=== PATIENT | female | born 1965 | race Caucasian/White ===

== ENCOUNTER 2017-08-02 18:48 | Inpatient (IN) | payer OTHER ==
[2017-08-02] MEDS ORDERED: Nitroglycerin 2% Ointment 1 INCH/1 GM Packet ONE (19:06)
[2017-08-02 19:21] LABS: #Basophils 0.2 thou/uL (0.0-0.2); #Eosinphils 0.1 thou/uL (0.0-0.7); #Monocytes 0.8 thou/uL (0.11-0.59); #Neutrophils 6.3 thou/uL (1.40-6.50); %Basophils 1.5 % (0.0-1.0); %Eosinophils 1.1 % (0.0-10.0); %Lymphocytes 40.3 % (21.0-51.0); %Monocytes 6.5 % (0.0-10.0); %Neutrophils 50.6 % (42.0-75.0); Mean Corpuscular HGB CONC 32.5 g/dL (32.0-36.0); Mean Corpuscular Hemoglobin 28.1 pg (27.0-31.0); Mean Corpuscular Volume 86.6 fl (81.0-99.0); Platelet Count 277 thou/uL (130-400); RBC Distribution Width 13.5 % (11.5-14.5); Red Blood Cell (RBC) Count 4.98 mill/uL (4.20-5.40); White Blood Cell (WBC) Count 12.4 thou/uL (4.8-10.8)
--- NOTE | 2017-08-02 19:31 | RAD ---
SINGLE VIEW OF THE CHEST 08/02/17 COMPARISON: 01/20/11. HISTORY: Chest pain and dyspnea on exertion. FINDINGS: Single view of the chest shows a normal sized cardiomediastinal silhouette. There is no evidence of c onsolidation, mass, or pleural effusion. The bones are unremarkable. IMPRESSION: No evidence of acute cardiopulmonary disease. POS: [facility]
[2017-08-02 19:37] LABS: ALT (SGPT) 34 U/L (8-55); AST (SGOT) 24 U/L (5-34); Albumin 4.3 g/dL (3.5-5.0); Alkaline Phosphatase 103 U/L (40-150); Anion Gap 13 mmol/L (10-20); BUN (Urea Nitrogen) 20 mg/dL (7.0-18.7); Bilirubin, Total 0.1 mg/dL (0.2-1.2); CK (CPK) 66 U/L (29-168); Calc. Creatinine Clearance 0 mL/min (70-130); Carbon Dioxide 22 mmol/L (22-29); Chloride 108 mmol/L (98-107); Estimated GFR-MDRD 71; Globulin 3.4 g/dL (2.4-3.5); Glucose 124 mg/dL (70-105); Lipase 100 U/L (8-78); Potassium 3.7 mmol/L (3.5-5.1); Protein, Total 7.7 g/dL (6.0-8.3); Sodium 139 mmol/L (136-145); Troponin I Less than 0.010 ng/mL (< 0.028)
[2017-08-02 22:22] LABS: Troponin I Less than 0.010 ng/mL (< 0.028)
[2017-08-02] MEDS ORDERED: Ondansetron HCl/PF 4 MG/2 ML Vial IVP PRN (23:44)
[2017-08-02] MEDS ORDERED: Ondansetron ODT 4 MG TAB SL PRN (23:44)
[2017-08-03 01:18] VITALS: BMI 33.9
[2017-08-03 01:43] LABS: Troponin I Less than 0.010 ng/mL (< 0.028)
[2017-08-03] MEDS ORDERED: Nitroglycerin 0.4 MG TAB (25 Tab Bottle) SL PRN (08:03)
[2017-08-03] MEDS ORDERED: FLU VACC QS2017-18 36 mo. & older 0.5 ML SYRINGE IM ONE (09:00)
[2017-08-03] MEDS ORDERED: Simvastatin 20 MG TAB PO SCH (09:00)
[2017-08-03] MEDS ORDERED: Non-Formulary Item 1 EACH (Fenofibrate [Fenofibrate] 1 TAB) PO SCH (09:00)
[2017-08-03] MEDS: Famotidine 20 MG TAB PO SCH ×2 (09:48→22:15)
[2017-08-03] MEDS: DULoxetine 30 MG CAP PO SCH ×2 (09:49→22:14)
[2017-08-03] MEDS: Fenofibrate Nanocrystallized 145 MG TAB PO SCH (09:49)
[2017-08-03] MEDS: Aspirin 325 MG TAB PO SCH (09:49)
--- NOTE | 2017-08-03 11:20 | ULT ---
ULTRASOUND ABDOMEN: HISTORY: Epigastric pain. Elevated lipase. FINDINGS: The liver demonstrate a homogeneous echotexture without focal mass or biliary ductal dilatation. The spleen measures 12 cm in length and is normal. No gallstones, gallbladder wall thickening, or peric holecystic fluid is seen. The common duct measures 4 mm in diameter. The left kidney and visualized portions of the pancreas are unremarkable. No free fluid is seen. There is a 2 cm hypoechoic focal area in the right mid kidney. IMPRESSION: 1. No evidence of cholelithiasis. 2. Probable 2 cm right renal mass. Further evaluation with CT scan of the abdomen and pelvis is rec ommended with and without intravenous contrast. CODE T POS: [facility]
--- NOTE | 2017-08-03 11:33 | HP ---
CHIEF COMPLAINT: Chest pain. HISTORY OF PRESENT ILLNESS: This is a 52-year-old female with known coronary disease with her last cardiac catheterization in 2014, which revealed a 70% stenosis in the left circumflex, 30-40%,right coronary, 20% in LAD with a patent stent who has admitted to persistent on and off chest pain, but yesterday developed increasing chest pain worse than her typical. She states that she has been in her usual state of health. She woke up to make breakfast and developed left-sided chest pain. The pain was more severe than typical. She stated 7-8/10. She did have some associated shortness of breath, nausea and diaphoresis. She states that the pain did radiate to her right shoulder and right jaw. It persisted throughout the morning. She told her and they brought her to the emergency room for evaluation. She states that the pain did improve when they put nitroglycerin on her chest wall. She has been pain free ever since, feeling close to her baseline now with still her baseline 2-3/10 out of pain, but much better than yesterday. PAST MEDICAL HISTORY: Coronary artery disease, hypertension, hyperlipidemia, anxiety, and depression. MEDICATIONS: Cymbalta 30 mg b.i.d., metoprolol 50 mg daily, simvastatin 20 mg daily, fenofibrate 160 mg daily, aspirin 325 mg daily. PAST SURGICAL HISTORY: Cardiac catheterization with stent 2012, cardiac catheterization 2014, appendectomy, hysterectomy with oophorectomy. SOCIAL HISTORY: No alcohol. No recent smoking history. FAMILY HISTORY: Positive for heart disease. REVIEW OF SYSTEMS: As per the history of present illness. She denies any recent fevers, chills or upper respiratory symptoms. HEENT: No headache, vision or hearing changes. CARDIAC: As per the history of present illness. No palpitations. PULMONARY: No cough, hemoptysis. GASTROINTESTINAL: Some nausea, but improved. No melena or hematochezia. GENITOURINARY: No dysuria or hematuria. NEUROLOGIC: No weakness, seizures, or syncope. PHYSICAL EXAMINATION: VITAL SIGNS: Temperature 97.9, pulse of 75, respirations 16, blood pressure 110 /70, pulse ox is 92% on room air. GENERAL: She is awake and alert, in no acute distress. Speech is clear. NECK: Supple, no JVD, adenopathy or bruits. HEART: Regular rate and rhythm without murmurs. LUNGS: Clear. ABDOMEN: Soft, slight epigastric tenderness. No rebound or guarding. EXTREMITIES: No clubbing, cyanosis or edema, 2+ peripheral pulses bilaterally. LABORATORY AND X-RAY FINDINGS: White blood cell count 12.4, with normal differential, hemoglobin and hematocrit 14 and 43.1, platelets of 277. Sodium 139, potassium 3.7, chloride 108, CO2 22, BUN and creatinine 20 and 0.85, serum glucose of 121, calcium of 10.0, AST and ALT are normal. Lipase was elevated at 100. Troponin I negative x3. BNP was 10.9. ASSESSMENT AND PLAN: 1. This is a 52-year-old female with known coronary artery disease, now with episode of chest pain with suspicious symptoms of nausea, diaphoresis. Agree with admission, rule out coronary syndrome. No sign of myocardial infarction with negative cardiac enzymes. Await Cardiology evaluation for further risk stratification. Consider long-acting nitrate to improve her symptoms. 2. Epigastric pain with elevated lipase. We will check ultrasound to rule out pancreatic source of her pain as well. 3. Hypertension. 4. Hyperlipidemia. We will continue her medications. DEANNED
[2017-08-03] MEDS ORDERED: ISOVUE-370 76%-LOCM 1 ML ONE (13:15)
[2017-08-03] MEDS ORDERED: ADENOSINE 60 MG/20 ML VIAL ONE (13:30)
--- NOTE | 2017-08-03 16:03 | NM ---
CARDIAC SPECT: CLINICAL HISTORY: 52-year-old female with chest pain, coronary artery disease, hypertension, and dyslipidemia. TECHNIQUE: A myocardial perfusion scan was performed using the single isotope one day protocol with technetium-9 9m sestamibi. 10 mCi were injected intravenously for the rest exam followed by 31 mCi for the stress exam. Pharmacologic stress with Lexiscan was monitored and interpreted by John Tapia NP. FINDINGS: Homogeneous tracer distribution is seen in the myocardial segments on stress and rest images without fixed or reversible defects. There is a focal area of increased tracer localization in the region of the right anterior mediastinu m. GATED SPECT LVEF: 71%. WALL MOTION EXAM: Normal. IMPRESSION: 1. Normal myocardial perfusion scan. 2. Findings suspicious for a right anterior mediastinal mass. Further evaluation with contrast enhan jeff CT scan of the chest is recommended. CODE T. POS: [facility]
--- NOTE | 2017-08-03 17:04 | CON ---
DATE OF CONSULTATION: 08/03/2017 CARDIOLOGY CONSULTATION PRIMARY ATTENDING: Fly Trujillo D.O. INDICATION FOR CONSULTATION: A 52-year-old female with known coronary artery disease and chest pain. HISTORY OF PRESENT ILLNESS: This very unfortunate 52-year-old female, who has a long history of alyssa nary artery disease. She first was seen by Dr. Azar in 2010, where she was seen in the emergency room and presented with an anterior MS acutely. She was taken to cardiac geotechnical laboratory technician and was found to have thrombus in the left anterior descending artery. She underwent angioplasty and stent placement at that time with a 2.5 x 23 mm stent to the left anterior descending artery. At that time, she had a left main stenosis of 10%. She had the RCA stenosis of 20% and the left circumflex was a small non dominant vessel with no significant stenosis. Ejection fraction was 40% to 45%. She then was seen, I believe in 2012, which we do not have records for, and at that time I believe she had cardiac rosa terization done at [facility], but no intervention was performed according to the patient. Then, again in 2014, she presented to [facility] to insurance changes and was found to have the in-stent restenosis of the left anterior descending artery about 70% and un derwent repeat angioplasty with a 3.5 x 15 mm balloon at that time and there was no residual stenosis , but there was no repeat stent placed. Apparently, a couple weeks later, she was seen again for fur ther intervention and she underwent angioplasty and stent placement to the left circumflex with a 2.2 5 x 12 mm drug-coated stent to the obtuse marginal branch. Since that time, she has been doing relat ively well, but said that she has started developing chest pain sometime back, did not have insurance and did not seek the care of a business technology teacher, but earlier this year she has now regained insurance an d has been trying to find a business technology teacher, but has been yet thus far has not seen Cardiology. She pre sented again at this time after having some chest discomfort. She said the chest pain started yester day morning, she became short of breath, nauseated and dizzy. She presented to the emergency room. Enzymes are negative. EKG was unremarkable. Her last stress test was previous to undergoing her las t stent placement. She also has some chest heaviness. Her enzymes still remain negative and EKG was unremarkable. At this time, she is pain free. She is comfortable and has no significant complaints . PAST MEDICAL HISTORY: Significant for the coronary artery disease, angioplasty and stent placement a s outlined above. She has also had a history of hypercholesterolemia. She has a history, I believe, gastroesophageal reflux disease. She has had a history of myocardial infarction in the past involvi ng the anterior wall of the left ventricle due to her occlusion of the left anterior descending arter y. FAMILY HISTORY: Her father also had coronary artery disease and I believe one brother had coronary a rtery disease. ALLERGIES: None. PRESENT MEDICATIONS: Include Lipitor 10 mg a day, aspirin 325 mg a day, Cymbalta, Pepcid, fenofibrat e, isosorbide mononitrate 60 mg a day, metoprolol 50 mg a day, nitroglycerin p.r.n. as needed, Zofran and also p.r.n. medications. REVIEW OF SYSTEMS: A 12 point review of systems unremarkable except what was noted in the history of present illness. PHYSICAL EXAMINATION: GENERAL: Reveals a well-developed, well-nourished female. VITAL SIGNS: Blood pressure is 108/64, heart rate is 63 and regular. She is afebrile, respiratory r ate is 18. HEENT: Reveals the head to be normocephalic and atraumatic. Carotid pulses are present. There were no bruits. There is no JVD. The thyroid is not enlarged. Oral mucosa was pink and moist. CHEST: Clear to auscultation. There were no rales, rhonchi or wheezes appreciated. CARDIOVASCULAR: Reveals a regular rate and rhythm with normal S1, S2. There is no S3, S4. There we re no significant murmurs, heaves, thrills, bruits or rubs noted. ABDOMEN: Soft and nontender with positive bowel sounds. No organomegaly or masses noted. Femoral p ulses are present. EXTREMITIES: Show no clubbing, cyanosis or edema. Pedal pulses are also present. NEUROLOGIC: The patient is fully intact. She has normal strength and tone. SKIN: Warm and dry. LABORATORY AND X-RAY FINDINGS: Shows negative cardiac enzymes. She did have a lipase elevated at 10 0. Her creatinine 0.85, potassium 3.7, sodium is 139, BUN is 20. Hemoglobin is 14. Blood sugar is 124. EKG shows normal sinus rhythm with no acute changes. IMPRESSION AND PLAN: 1. Coronary artery disease with chest pain. She was ruled out for myocardial infarction. She had n o EKG changes and no enzymes. At this time, we suggest that she undergo stress testing to rule out e vidence for underlying ischemia. If any ischemic changes noted and she should undergo cardiac cathet erization for evaluation of the coronary arteries; however, she does have in the past that appear to be a small left anterior descending artery but in 2014, was post-dilated the previous stent up to 3.5 according to the records. 2. Hypercholesterolemia. She will continue on her statin medications. 3. Hypertension. At this time is well controlled. We will continue to monitor very carefully as deep delacruz is actually somewhat hypotensive at this time and I believe the isosorbide is being held due to the hypotension. We will be more than happy to continue to follow the patient with you. Most likely fu rther care will be determined by Dr. Azar as he has seen her in the past.
--- NOTE | 2017-08-03 18:37 | CT ---
CT CHEST WITH CONTRAST: 08/03/17 HISTORY: Suspicious right anterior mediastinal mass. Comparison radiograph prior day. FINDINGS: There is an anterior mediastinal mass with a lobular border extending from what appears to be thymus. There is some internal necrosis or cystic structures within this mass. The mass measures 3.1 x 4.5 x 3.9 cm. No pericardial effusion. There is a calcified anterior paratracheal and AP window lymph node s. No suspicious pulmonary nodules. No pneumothorax. No effusion. The sternum and manubrium are intact. The upper abdomen is unremarkable. IMPRESSION: Lobular anterior mediastinal mass measuring 3.1 x 4.4 x 3.9 cm which appears to extend from the thymu s. 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 Lymphoma is also a possibility. Thoracic surgery cons ultation advised. POS: [facility]
[2017-08-03] MEDS ORDERED: Atorvastatin Calcium 10 MG TAB PO SCH (21:00)
[2017-08-04] MEDS: DULoxetine 30 MG CAP PO SCH (08:48)
[2017-08-04] MEDS: Aspirin 325 MG TAB PO SCH (08:48)
[2017-08-04] MEDS: Famotidine 20 MG TAB PO SCH (08:48)
[2017-08-04] MEDS: Fenofibrate Nanocrystallized 145 MG TAB PO SCH (08:48)
[2017-08-04 09:35] VITALS: BP 124/77; TEMP 98
--- NOTE | 2017-08-04 10:18 | CON ---
DATE OF CONSULTATION: 08/04/2017 HISTORY OF PRESENT ILLNESS: This is a 52-year-old female with a history of stenting on 2 occasions t o the LAD and then one occasion to a small circumflex system. In any event, she was admitted with so me chest and arm pain with negative cardiac enzymes. She underwent a stress study which was unremark able. However, there were some suspicious area on the stress study suggesting that she may have a me diastinal mass. 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 PAST MEDICAL HISTORY: Hypertension, dyslipidemia, anxiety, depression and previously noted coronary artery disease. PAST SURGICAL HISTORY: Includes appendectomy, hysterectomy, and oophorectomy in about 1999. She has had previous stenting in 2012 and 2014. SOCIAL HISTORY: She has not smoked since 2010. She is . She is not working. PHYSICAL EXAMINATION: GENERAL: She is an alert, cooperative lady in no distress. VITAL SIGNS: She has a recorded height of 5 feet 4, weight 197, blood pressure 124/77, heart rate 69 . NECK: Supple. No carotid bruits, no adenopathy. LUNGS: Clear to auscultation. CARDIAC: Regular rate and rhythm. No murmurs. ABDOMEN: Soft, nontender. EXTREMITIES: She has no peripheral edema. She has palpable pedal pulses bilaterally. LABORATORY: Her laboratory values are unremarkable with a normal creatinine and hemoglobin. HOME MEDICATIONS: Aspirin p.r.n., metoprolol 50 daily, Cymbalta 30 b.i.d., Zocor 20 daily, Fenofibra te 1 tablet daily. ALLERGIES: None known. PLAN: I have discussed the possibility of thymectomy via partial or complete sternotomy. She is agr eeable to this and we will arrange as an outpatient for next week.
--- NOTE | 2017-08-04 14:14 | DIS ---
DATE OF ADMISSION: 08/02/2017 DATE OF DISCHARGE: 08/04/2017 ADMITTING PHYSICIAN: Her PCP, Dr. Adams Trujillo. ADMITTING DIAGNOSIS: Chest pain. DISCHARGE DIAGNOSIS: Thymus mass. CONSULTATIONS: Cardiology and Cardiovascular Surgery. HOSPITAL COURSE: The patient is a 52-year-old female, who came in with known coronary braden ry disease, had previous stents placed, came in with chest pain, was watched overnight and her cardia c enzymes never increased. She had further imaging done, which showed potential for mediastinal mass . A CT scan was done of the area, which did show an enlarged retained thymus. At that point, Dr. Amor escalante from [facility] was consulted, evaluated, and agreed on the presence of the thymus, and in fact, it was the etiology of the discomfort. Discussed with the patient and he will plan on doing a thymec jose as an outpatient early next week. So, the discharge plan is to go home. She will continue her home meds. She is aware to stay away from NSAIDs and other known blood thinners like aspirin and she will follow up for the surgery early next week. After that she will follow up with Dr. Trujillo.
== END 2017-08-04 15:15 | disposition home or self-care (01) | DRG 816 ==
LOC: SCSER 18:48 → 2SW 19:50 → OBSVTOIN 19:50 → T4-A 08-03 22:07
PROVIDERS: ADMIT Family Medicine; ATTEND Family Medicine
DX: E32.9 Disease of thymus, unspecified (principal); E78.00 Pure hypercholesterolemia, unspecified; E78.5 Hyperlipidemia, unspecified; I25.10 Atherosclerotic heart disease of native coronary artery without angina pectoris; I10 Essential (primary) hypertension; F41.9 Anxiety disorder, unspecified; Z95.5 Presence of coronary angioplasty implant and graft; K21.9 Gastro-esophageal reflux disease without esophagitis; I25.2 Old myocardial infarction; Z79.02 Long term (current) use of antithrombotics/antiplatelets; Z79.82 Long term (current) use of aspirin
CPT/HCPCS: 36415; 71045; 71260; 76700; 78452; 80053; 82550; 82553; 83690; 83880; 84484; 85025; 93005; 93017; A9500; J0153

== ENCOUNTER 2017-08-08 10:19 | Inpatient (IN) | payer OTHER ==
[2017-08-08] MEDS ORDERED: CEFAZOLIN/Water 2 GM/20 ML SYRINGE ONE (10:54)
[2017-08-08] MEDS ORDERED: Glycopyrrolate 0.2 MG/ML 5 ML SYRINGE ONE (11:31)
[2017-08-08] MEDS ORDERED: Lidocaine 1% PF 5 ML VIAL ONE (11:31)
[2017-08-08] MEDS ORDERED: Propofol 200 MG/20 ML VIAL ONE (11:31)
[2017-08-08] MEDS ORDERED: PHENYLEPHRINE-NS 100 MCG/ML 10 ML SYRINGE ONE (11:31)
[2017-08-08] MEDS ORDERED: Ketorolac Tromethamine 30 MG/ML VIAL ONE ×2 (11:31→14:11)
[2017-08-08] MEDS ORDERED: Ondansetron HCl/PF 4 MG/2 ML Vial ONE (11:31)
[2017-08-08] MEDS ORDERED: Dexamethasone 20 MG/5 ML VIAL ONE (11:31)
[2017-08-08] MEDS ORDERED: Fentanyl 250 MCG/5 ML VIAL ONE (11:44)
[2017-08-08] MEDS ORDERED: Promethazine HCl 25 MG/ML VIAL IM PRN ×2 (13:55→14:16)
[2017-08-08] MEDS ORDERED: Ondansetron HCl/PF 4 MG/2 ML Vial IVP PRN ×2 (13:55→14:16)
[2017-08-08] MEDS ORDERED: DOPamine 400 MG/D5W 250 ML 250 ML IVPB PRN (13:55)
[2017-08-08] MEDS ORDERED: Norepinephrine 8 MG/0.9% NS 250 ML IVPB PRN (13:55)
[2017-08-08] MEDS ORDERED: hydrALAZINE 20 MG/ML VIAL SLOW IVP PRN (13:55)
[2017-08-08] MEDS ORDERED: HYDROcodone/Acetaminophen 5/325 mg Tablet PO PRN (13:55)
[2017-08-08] MEDS ORDERED: HYDROmorphone 0.5 MG/0.5 ML SYRINGE ONE (14:11)
[2017-08-08] MEDS ORDERED: Promethazine HCl 25 MG/ML VIAL SLOW IVP PRN (14:16)
[2017-08-08] MEDS ORDERED: HYDROmorphone 2 MG/ML VIAL SLOW IVP PRN (14:16)
--- NOTE | 2017-08-08 14:41 | OP ---
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 PROCEDURE: Thymectomy through upper partial sternal split. ANESTHESIA: General. ESTIMATED BLOOD LOSS: Less than 100 mL. FINDINGS: The patient had a multilobulated left lobe of the thymus. The right lobe consisted of abo ut 3 cm diameter tumor that was well encapsulated, although rather densely adherent to the right pleu ra. PROCEDURE IN DETAIL: After adequate anesthesia had been obtained, the patient was prepped and draped . Incision was made from the sternal notch down to the third rib in the midline of the sternum. Adam rnal saw was then used to divide the sternum down just below the third rib and then carried to the [facility] through the sternum into the interspace. Sternal retractor was then placed. The thymus was mobi lized beginning in the right lateral area and the right pleura entered rather immediately. Following this, dissection was carried out and the tumor was noted to be fairly densely adherent to the pleura and for this reason, a portion of the pleura was included with the specimen. Right phrenic nerve wa s visualized and incision in the pleura was kept at least 1 cm away from this. After mobilizing the tumor and pleura on the right side, attention was turned to the portions of thymus gland extending francis periorly on the right and left, and these were mobilized above the innominate vein. The innominate v ein was fully skeletonized to remove the thymus in this region. Following this, attention was turned to the left lobe of the thymus also entering the left pleura, visualizing the vagus nerve and once a gain staying about a centimeter from that structure freeing up the thymic gland. After removing the specimen, there were no bleeding issues after thorough inspection on 2 occasions. Two #19 drains wer e placed through subxiphoid process incisions and extended in each pleural space. Following this, th e sternum was reapproximated with four #7 interrupted wire using vancomycin paste on the sternal edge s. Subcutaneous tissue was closed in two layers and the skin was closed. The patient is to be taken to the recovery room in guarded condition.
[2017-08-08 15:55] VITALS: BMI 34.9
--- NOTE | 2017-08-08 16:07 | RAD ---
PORTABLE CHEST: Date: 08/08/17 HISTORY: Post thoracotomy. FINDINGS: Postop sternotomy changes are noted. There is patchy atelectasis and/or infiltrate in both lung bases , slightly more prominent on the right. Upper lung zones are clear. Heart size is mildly enlarged wit h mild vascular engorgement. I cannot exclude small effusions. IMPRESSION: Patchy infiltrate and/or atelectasis in the right lung base. Evidence of tiny effusions and probable mild atelectasis in the left lung base. POS: [facility]
[2017-08-08] MEDS: Fentanyl 100 MCG/2 ML VIAL SLOW IVP PRN ×2 (16:34→20:02)
[2017-08-08] MEDS ORDERED: Ketorolac Tromethamine 15 MG/ML VIAL IVP SCH (18:00)
[2017-08-08] MEDS ORDERED: Ketorolac Tromethamine 30 MG/ML VIAL IVP SCH (18:15)
[2017-08-08] MEDS: Enoxaparin Sodium 30 MG/0.3 ML SYRINGE SC SCH (20:08)
[2017-08-08] MEDS: DULoxetine 30 MG CAP PO SCH (20:08)
[2017-08-08] MEDS: CEFAZOLIN/Water 2 GM/20 ML SYRINGE SLOW IVP SCH (20:10)
[2017-08-08] MEDS: Sodium Chloride 0.9% 1,000 ML IV SCH (20:10)
[2017-08-08] MEDS: Ketorolac Tromethamine 30 MG/ML VIAL IVP SCH (22:56)
[2017-08-09] MEDS ORDERED: Morphine 4 MG/ML VIAL SLOW IVP PRN (01:05)
[2017-08-09] MEDS: Fentanyl 100 MCG/2 ML VIAL SLOW IVP PRN ×3 (02:04→21:11)
[2017-08-09] MEDS: CEFAZOLIN/Water 2 GM/20 ML SYRINGE SLOW IVP SCH ×2 (03:30→13:02)
[2017-08-09] MEDS: Sodium Chloride 0.9% 1,000 ML IV SCH (03:32)
[2017-08-09] MEDS: HYDROcodone/Acetaminophen 5/325 mg Tablet PO PRN ×5 (04:44→21:57)
[2017-08-09 05:33] LABS: #Lymphocytes 3.1 thou/uL (1.20-3.40); #Monocytes 1.1 thou/uL (0.11-0.59); #Neutrophils 9.6 thou/uL (1.40-6.50); %Basophils 0.2 % (0.0-1.0); %Eosinophils 0.2 % (0.0-10.0); %Lymphocytes 22.2 % (21.0-51.0); %Monocytes 7.8 % (0.0-10.0); %Neutrophils 69.6 % (42.0-75.0); Hemoglobin 12.8 g/dL (12.0-16.0); Mean Corpuscular HGB CONC 32.8 g/dL (32.0-36.0); Mean Corpuscular Volume 91.5 fl (81.0-99.0); Mean Platelet Volume 7.6 fL (7.4-10.4); Platelet Count 254 thou/uL (130-400); RBC Distribution Width 13.6 % (11.5-14.5); Red Blood Cell (RBC) Count 4.25 mill/uL (4.20-5.40); White Blood Cell (WBC) Count 13.8 thou/uL (4.8-10.8)
[2017-08-09 05:40] LABS: Anion Gap 12 mmol/L (10-20); BUN (Urea Nitrogen) 11 mg/dL (7.0-18.7); Calc. Creatinine Clearance 124 mL/min (70-130); Calcium 9.1 mg/dL (7.8-10.44); Carbon Dioxide 24 mmol/L (22-29); Chloride 106 mmol/L (98-107); Estimated GFR-MDRD 77; Glucose 97 mg/dL (70-105); Potassium 3.9 mmol/L (3.5-5.1); Sodium 138 mmol/L (136-145)
[2017-08-09] MEDS: Ketorolac Tromethamine 30 MG/ML VIAL IVP SCH ×4 (05:56→23:56)
[2017-08-09] MEDS: Aspirin 325 MG TAB PO SCH (08:02)
[2017-08-09] MEDS: DULoxetine 30 MG CAP PO SCH ×2 (08:02→21:11)
[2017-08-09] MEDS: Atorvastatin Calcium 10 MG TAB PO SCH (08:03)
--- NOTE | 2017-08-09 08:28 | RAD ---
CHEST 1 VIEW: HISTORY: Surgery. Followup. COMPARISON: 08/08/17. FINDINGS: Cardiac silhouette is magnified by projection. Pulmonary vasculature remains upper limits of normal and accentuated by shallow inspiration. Patchy bibasilar atelectasis is unchanged in appearance from the previous exam. Mediastinum is midline with postoperative changes. Radiopaque tubing over the r ight hemithorax is unchanged in position. monitor worker leads overlie the chest. IMPRESSION: Stable postoperative appearance of the chest. POS: [facility]
[2017-08-09] MEDS: Enoxaparin Sodium 30 MG/0.3 ML SYRINGE SC SCH (21:10)
[2017-08-10] MEDS: Ketorolac Tromethamine 30 MG/ML VIAL IVP SCH (06:33)
[2017-08-10] MEDS: HYDROcodone/Acetaminophen 5/325 mg Tablet PO PRN (06:34)
[2017-08-10 08:32] VITALS: BP 138/84; TEMP 98.4
[2017-08-10] MEDS: Atorvastatin Calcium 10 MG TAB PO SCH (09:12)
[2017-08-10] MEDS: Aspirin 325 MG TAB PO SCH (09:12)
[2017-08-10] MEDS: DULoxetine 30 MG CAP PO SCH (09:12)
--- NOTE | 2017-08-10 11:00 | DIS ---
DATE OF ADMISSION: 08/08/2017 DATE OF DISCHARGE: 08/10/2017 HOSPITAL SUMMARY: The patient was admitted on 08/08/2017 and underwent a thymectomy for thymoma. Sh e had no obvious invasion, although it was fairly densely adherent to the right pleura and for this r shannan, the right pleura was taken along with the tumor. Phrenic nerves were both preserved and pleur al spaces were both opened. Pathology is pending at the time of this dictation. She will be dischar [facility] on her admitting medicines plus Tylenol #3 for pain. Discharge and follow up instructions h ave been given.
== END 2017-08-10 09:26 | disposition home or self-care (01) | DRG 164 ==
LOC: SURG A 10:19 → CCU 15:35 → SURG A 08-09 09:39
PROVIDERS: ADMIT Thoracic Surgery (Cardiothoracic Vascular Surgery); ATTEND Thoracic Surgery (Cardiothoracic Vascular Surgery)
PROC: 07TM0ZZ Resection of Thymus, Open Approach (ICD-10-PCS; principal; 2017-08-08)
PROC: 0BBN0ZZ Excision of Right Pleura, Open Approach (ICD-10-PCS; 2017-08-08)
DX: C38.8 Malignant neoplasm of overlapping sites of heart, mediastinum and pleura (principal); C78.2 Secondary malignant neoplasm of pleura; C77.1 Secondary and unspecified malignant neoplasm of intrathoracic lymph nodes; E78.5 Hyperlipidemia, unspecified; F41.9 Anxiety disorder, unspecified; I10 Essential (primary) hypertension; Z95.5 Presence of coronary angioplasty implant and graft; I25.10 Atherosclerotic heart disease of native coronary artery without angina pectoris; F32.9 Major depressive disorder, single episode, unspecified; Z87.891 Personal history of nicotine dependence; Z90.710 Acquired absence of both cervix and uterus; Z90.49 Acquired absence of other specified parts of digestive tract; Z79.82 Long term (current) use of aspirin
CPT/HCPCS: 36415; 71045; 80048; 85025; 86850; 86900; 86901; 88307; J1100; J1170; J1650; J1885; J2001; J2405; J2704; J3010; J3370

== ENCOUNTER 2017-08-18 07:48 | Outpatient (CLI) | payer OTHER ==
[2017-08-18] MEDS ORDERED: ISOVUE-370 76%-LOCM 1 ML ONE (16:24)
== END 2017-08-18 07:49 | disposition home or self-care (01) ==
LOC: BICCT 07:48
PROVIDERS: ATTEND Family Medicine
DX: N28.89 Other specified disorders of kidney and ureter (principal); J98.11 Atelectasis; Z90.710 Acquired absence of both cervix and uterus
CPT/HCPCS: 74178

== ENCOUNTER 2017-08-29 10:10 | Outpatient (CLI) | payer OTHER ==
--- NOTE | 2017-08-29 13:13 | RAD ---
BIPHASIC UPPER GI: HISTORY: Gastroparesis. FINDINGS: Swallowing is grossly normal. There is unobstructed flow of contrast through the esophagus and into the stomach, duodenum, and proximal jejunum. No ulcer, stricture, mass, or diverticulum is seen. No reflux is demonstrated during the Valsalva maneuver. IMPRESSION: Normal exam. POS: [facility]
== END 2017-08-29 10:11 | disposition home or self-care (01) ==
LOC: RAD 10:10
PROVIDERS: ATTEND Family Medicine
DX: K31.84 Gastroparesis (principal)
CPT/HCPCS: 74247

== ENCOUNTER 2017-10-23 07:40 | Outpatient (CLI) | payer OTHER ==
--- NOTE | 2017-10-23 12:13 | NM ---
HEPATOBILIARY SCAN: Date: 10/23/17 HISTORY: Epigastric pain. RADIOPHARMACEUTICAL: 5.2 mCi technetium-99m mebrofenin injected intravenously. FINDINGS: There is good tracer extraction by the liver with prompt excretion into the biliary tract and small b owel loops, and normal filling of the gallbladder. The calculated gallbladder ejection fraction follo wing an oral fatty meal measures 51%. IMPRESSION: Normal exam. POS: [facility]
== END 2017-10-23 07:41 | disposition home or self-care (01) ==
LOC: NM 07:40
PROVIDERS: ATTEND Family Medicine
DX: R10.13 Epigastric pain (principal)
CPT/HCPCS: 78227; A9537

== ENCOUNTER 2018-03-15 08:00 | Outpatient (CLI) | payer OTHER ==
--- NOTE | 2018-03-15 10:09 | CT ---
CT THORAX WITH IV CONTRAST: Date: 03/15/18 HISTORY: Thymoma, post resection radiation therapy. This is for restaging. COMPARISON: 08/03/17. FINDINGS: There have been interval postsurgical changes related to median sternotomy. The previously noted ante rior mediastinal mass has been removed. There is fluid density seen in the anterior mediastinum, whic h may be related to postoperative changes. No enhancing fluid collection is seen. Calcified pretracheal lymph node is again present. No mass is seen in the anterior mediastinum on tod ay's exam. There is linear density seen within the anteromedial aspect of the right upper lobe adjace nt to excision site of the previously noted anterior mediastinal mass, which is likely related to eit her mild scarring and/or atelectasis. Calcifications in the anteromedial aspect of the right upper lo be are also again seen, likely related to calcified granulomata. No discrete pulmonary nodule or mass is seen. There is no pleural effusion. Minimal dependent atelect asis is seen posteriorly on the right. There is mild atherosclerotic calcifications and plaque within the thoracic aorta with vascular calci fication seen in the coronary arteries. Tiny pericardial effusion is identified. The upper abdomen demonstrates a normal CT appearance. No other interval change. IMPRESSION: 1. Postsurgical changes related to interval excision of the anterior mediastinal mass with evidence of median sternotomy. There is fluid density seen within the anterior superior mediastinum, which may be related to postsurgical changes. No abnormal enhancement or enhancing fluid collection is seen. 2. Linear scarring and/or atelectasis in the anteromedial right upper lobe. 3. Evidence of prior granulomatous disease. 4. No enlarged lymph nodes are seen by CT size criteria. 5. Small amount of gas and debris within the mid esophagus, which may be related to gastroesophageal reflux. 6. No lytic or sclerotic osseous lesions are seen. POS: [facility]
[2018-03-15] MEDS ORDERED: ISOVUE-370 76%-LOCM 1 ML ONE (16:18)
== END 2018-03-15 08:01 | disposition home or self-care (01) ==
LOC: BICCT 08:00
PROVIDERS: ATTEND Radiology Radiation Oncology
DX: D15.0 Benign neoplasm of thymus (principal); J98.59 Other diseases of mediastinum, not elsewhere classified; J98.4 Other disorders of lung; D71 Functional disorders of polymorphonuclear neutrophils; K22.8 Other specified diseases of esophagus; Z98.890 Other specified postprocedural states
CPT/HCPCS: 71260

== ENCOUNTER 2018-04-27 07:22 | Outpatient (CLI) | payer OTHER ==
--- NOTE | 2018-04-27 09:12 | ULT ---
ABDOMEN ULTRASOUND: HISTORY: Abdominal pain with nausea. FINDINGS: The liver demonstrates increased echogenicity, consistent with fatty infiltration. No focal mass or intrahepatic ductal dilatation is seen. The spleen is normal. No gallstones, gallbladder wall thick ening, or pericholecystic fluid is seen. The common duct measure 5 mm in diameter. The visualized p ortions of the aorta, IVC, and pancreas are normal. No hydronephrosis is seen on either side. No fr ee fluid is noted. IMPRESSION: 1. Fatty liver. 2. No evidence of cholelithiasis. POS: [facility]
== END 2018-04-27 07:23 | disposition home or self-care (01) ==
LOC: ULT 07:22
PROVIDERS: ATTEND Internal Medicine Gastroenterology
DX: R10.9 Unspecified abdominal pain (principal); K76.0 Fatty (change of) liver, not elsewhere classified
CPT/HCPCS: 76700

== ENCOUNTER 2018-04-27 07:50 | Day surgery (SDC) | payer OTHER ==
[2018-04-26 09:45] VITALS: BMI 32.5
[~2018-04-27 07:50] MED LIST: Lidocaine 1% PF 5 ML VIAL ONE; PROPOFOL 200 MG/20 ML VIAL ONE
--- NOTE | 2018-04-27 08:01 | HP ---
HISTORY OF PRESENT ILLNESS: This is a 52-year-old female, referred to me because of abdominal pain. She has been having abdominal pain over the last several months. The patient is in over right upper quadrant, going to both of her legs and epigastric area. The pain is mild and is well tolerated, however, the pain is worse off and on with food, especially fried food and fatty food. The patient has had negative ultrasonogram, negative CAT scan, and negative HIDA scan. She comes in for EGD because of abdominal pain and further colonoscopy for colon cancer screening. ALLERGIES: NONE. SOCIAL HISTORY: The patient is a former smoker. Does not drink alcohol. MEDICAL ILLNESSES: 1. Migraine. 2. Hyperlipidemia. 3. Depression/anxiety. 4. Coronary artery disease, status post stent placement. 5. Hypertension. PHYSICAL EXAMINATION: VITAL SIGNS: Pulse is 70, blood pressure 130/80. HEENT: Conjunctivae clear. CARDIOVASCULAR SYSTEM: First and second heart sounds heard. LUNGS: Clear to auscultation. ABDOMEN: Soft. No organomegaly. Abdomen is tender in the right upper quadrant epigastric area. There is no rebound or guarding. EXTREMITIES: No edema. ADMITTING DIAGNOSES: Abdominal pain, nausea, chronic in nature PLAN: EGD for the abdominal pain and a colonoscopy for colon cancer screening. Job ID: [id number]
--- NOTE | 2018-04-27 19:45 | OP ---
DATE OF PROCEDURE: 04/27/2018 PROCEDURE PERFORMED: Colonoscopy. PREOPERATIVE DIAGNOSIS: A 52-year-old female, undergoing colonoscopy for colon cancer screening. POSTOPERATIVE DIAGNOSIS: Normal colonoscopy except for hemorrhoids. DESCRIPTION OF PROCEDURE: The patient was placed on her left lateral position and was given sedation by the Anesthesia Department. A rectal exam was done before the scope was advanced into the rectum. No lesions felt on rectal exam. An Pentax video colonoscope was introduced into the rectum, advanced all the way to the cecum. The prep was good. The mucosa appeared normal. The appendicular opening, ileocecal wall, cecum, no pathology. Withdrawal of scope from the cecum, ascending colon, hepatic flexure, no pathology seen. The transverse colon, splenic flexure, descending colon, sigmoid colon, no lesion seen. The rectum showed hemorrhoids. Job ID: [id number]
--- NOTE | 2018-04-27 20:01 | OP ---
DATE OF PROCEDURE: 04/27/2018 PROCEDURE PERFORMED: Esophagogastroduodenoscopy with biopsy. PREOPERATIVE DIAGNOSES: Abdominal pain and nausea. The pain is postprandial mostly. The patient is undergoing EGD. POSTOPERATIVE DIAGNOSES: 1. Normal esophagus and duodenum. 2. A shallow ulcer, healing over gastric antrum with gastritis. DESCRIPTION OF PROCEDURE: The patient was placed on her left lateral position and was given sedation by the Anesthesia Department. A Pentax video gastroscope, under direct vision passed down the oropharynx past the GE junction into the stomach and subsequently into the descending duodenum. The esophageal mucosa appeared to be normal. At the GE junction, no pathology. Retroflexion failed to show any pathology in the fundus or cardia. At the gastric body, no pathology. Over the gastric antrum, the patient noted to have shallow ulceration with gastritis. The pyloric channel shows some edema, erythema, but no ulceration. At the duodenal bulb, descending duodenum, no pathology seen. Biopsies obtained in the gastric antrum and gastric body. The stomach decompressed and the scope removed. DISCHARGE PLANNING: This is a 52-year-old female with chronic abdominal pain and nausea. The patient has had negative CAT scan of abdomen, negative HIDA scan. The patient came for EGD because of abdominal pain and also for a colonoscopy for colon cancer screening. The EGD showed a shallow ulceration with gastritis. DISCHARGE MEDICATION: Omeprazole 40 once a day. 1.Await gastric biopsy. 2. Further recommendations after the biopsy report. Job ID: [id number] [facility]
== END 2018-04-27 12:55 | disposition home or self-care (01) ==
LOC: SDC 07:50
PROVIDERS: ATTEND Internal Medicine Gastroenterology
DX: K29.50 Unspecified chronic gastritis without bleeding (principal); B96.81 Helicobacter pylori [H. pylori] as the cause of diseases classified elsewhere; Z12.11 Encounter for screening for malignant neoplasm of colon; K25.9 Gastric ulcer, unspecified as acute or chronic, without hemorrhage or perforation; G43.909 Migraine, unspecified, not intractable, without status migrainosus; E78.5 Hyperlipidemia, unspecified; F32.9 Major depressive disorder, single episode, unspecified; K64.9 Unspecified hemorrhoids; F41.9 Anxiety disorder, unspecified; I10 Essential (primary) hypertension; I25.10 Atherosclerotic heart disease of native coronary artery without angina pectoris; Z95.5 Presence of coronary angioplasty implant and graft
CPT/HCPCS: 88305; 88312; J2001; J2704

== ENCOUNTER 2018-09-17 07:22 | Outpatient (CLI) | payer OTHER ==
--- NOTE | 2018-09-17 08:20 | CT ---
EXAM: CT CHEST WITH IV CONTRAST HISTORY: Malignant neoplasm of thymus. Patient is status post surgery and radiation COMPARISON: 03/15/2018 FINDINGS: Tiny low-density lesion in the left lobe of the thyroid gland is again seen. Changes of median sterno jose are redemonstrated. Residual fluid in the anterior mediastinum is again seen without abnormal loculation. A small pericardial effusion is redemonstrated. Calcified lymph nodes are redemonstrated. No mediastinal hilar or axillary and lymphadenopathy is see n. No pericardial effusions are identified. There are vascular calcifications without evidence of aneurysmal dilatation of the thoracic aorta. There are mild degenerative changes in the spine. No ost eolytic or osteoblastic lesions are seen. Scarring in the right medial upper lobe is again seen. Tiny calcified granulomas in the medial right upper lobe are again noted. No suspicious lung nodules or masses are otherwise seen. Upper abdominal tomograms demonstrate changes of fatty infiltration of the liver. IMPRESSION: Stable exam.
[2018-09-17] MEDS ORDERED: Iopamidol 370 76% 100 ML VIAL ONE (09:51)
== END 2018-09-17 07:23 | disposition home or self-care (01) ==
LOC: BICCT 07:22
PROVIDERS: ATTEND Radiology Radiation Oncology
DX: Z08 Encounter for follow-up examination after completed treatment for malignant neoplasm (principal); Z85.238 Personal history of other malignant neoplasm of thymus; Z92.3 Personal history of irradiation; Z92.21 Personal history of antineoplastic chemotherapy
CPT/HCPCS: 71260; Q9967

== ENCOUNTER 2018-10-30 09:47 | Outpatient (CLI) | payer OTHER ==
--- NOTE | 2018-10-30 11:19 | ULT ---
RIGHT UPPER QUADRANT ULTRASOUND: Date: 10/30/18 HISTORY: Right upper quadrant pain. FINDINGS: The liver demonstrates increased echotexture consistent with fatty infiltration. No focal mass or int rahepatic ductal dilatation seen. No gallstones, gallbladder wall thickening, or pericholecystic flui d is identified. The common duct measures 3.0 mm in diameter. The right kidney and pancreas appear no rmal. No free fluid is seen in Morison's pouch. IMPRESSION: 1. Fatty liver. 2. No evidence of cholelithiasis. POS: OFF
== END 2018-10-30 09:48 | disposition home or self-care (01) ==
LOC: BICULT 09:47
PROVIDERS: ATTEND Surgery
DX: R10.11 Right upper quadrant pain (principal); K76.0 Fatty (change of) liver, not elsewhere classified
CPT/HCPCS: 76705

== ENCOUNTER 2019-08-22 12:03 | Outpatient (CLI) | payer OTHER ==
--- NOTE | 2019-08-22 13:08 | ULT ---
Exam: Bilateral renal ultrasound HISTORY: Left flank pain COMPARISON: None FINDINGS: Right kidney: Normal cortical echotexture. No hydronephrosis. There is renal cortical thinning. Right kidney measurements: 4.9 x 10.7 x 6.5 cm. Left kidney: Normal cortical echotexture. No hydronephrosis. There is renal cortical thinning Left kidney measurements 4.8 x 10.9 x 4.9 cm. Urinary bladder: Normal mucosa. Bladder volume is 77 mm IMPRESSION: No hydronephrosis.
== END 2019-08-22 12:04 | disposition home or self-care (01) ==
LOC: BICULT 12:03
PROVIDERS: ATTEND Family Medicine
DX: R10.9 Unspecified abdominal pain (principal)
CPT/HCPCS: 76770

== ENCOUNTER 2020-07-28 10:21 | Outpatient (CLI) | payer OTHER | END 2020-07-28 10:22 | disposition home or self-care (01) | LOC: BICMAMMO 10:21 | PROVIDERS: ATTEND Family Medicine | DX: Z12.31 Encounter for screening mammogram for malignant neoplasm of breast (principal); Z91.89 Other specified personal risk factors, not elsewhere classified; Z80.3 Family history of malignant neoplasm of breast | CPT/HCPCS: 77063; 77067 ==

== ENCOUNTER 2020-12-26 20:22 | Inpatient (IN) | payer OTHER ==
[2020-12-26 21:00] LABS: #Basophils 0.1 thou/uL (0.0-0.2); #Eosinphils 0.1 thou/uL (0.0-0.7); #Lymphocytes 2.1 thou/uL (1.20-3.40); #Monocytes 0.9 thou/uL (0.11-0.59); #Neutrophils 6.5 thou/uL (1.40-6.50); %Basophils 0.7 % (0.0-1.0); %Eosinophils 0.7 % (0.0-10.0); %Lymphocytes 21.5 % (21.0-51.0); %Monocytes 8.9 % (0.0-10.0); %Neutrophils 68.2 % (42.0-75.0); Hemoglobin 13.5 g/dL (12.0-16.0); Mean Corpuscular Hemoglobin 29.7 pg (27.0-31.0); Mean Corpuscular Volume 87.3 fL (78.0-98.0); Platelet Count 258 thou/uL (130-400); RBC Distribution Width 13.1 % (11.5-14.5); Red Blood Cell (RBC) Count 4.55 mill/uL (4.20-5.40); White Blood Cell (WBC) Count 9.6 thou/uL (4.8-10.8)
[2020-12-26] MEDS ORDERED: Morphine 4 MG/ML VIAL ONE (21:05)
[2020-12-26] MEDS ORDERED: Ketorolac Tromethamine 30 MG/ML VIAL ONE (21:05)
[2020-12-26 21:13] LABS: INR-International Normal Ratio 1.4; Prothrombin Time 17.4 sec (12.0-14.7)
[2020-12-26 21:14] LABS: PTT 54.9 sec (22.9-36.1)
[2020-12-26 21:23] LABS: ALT (SGPT) 35 U/L (8-55); AST (SGOT) 30 U/L (5-34); Albumin 4.1 g/dL (3.5-5.0); Alkaline Phosphatase 174 U/L (40-110); Anion Gap 16 mmol/L (10-20); BUN (Urea Nitrogen) 9 mg/dL (9.8-20.1); Bilirubin, Total 0.6 mg/dL (0.2-1.2); Calc. Creatinine Clearance 0 mL/min (70-130); Calcium 9.3 mg/dL (7.8-10.44); Carbon Dioxide 21 mmol/L (22-29); Chloride 106 mmol/L (98-107); Globulin 3.1 g/dL (2.4-3.5); Glucose 102 mg/dL (70-105); Potassium 3.9 mmol/L (3.5-5.1); Protein, Total 7.2 g/dL (6.0-8.3); Sodium 139 mmol/L (136-145)
[2020-12-27] MEDS ORDERED: HYDROcodone/Acetaminophen 5/325 mg Tablet PO PRN ×2 (01:44)
[2020-12-27] MEDS ORDERED: Acetaminophen 325 MG TAB PO PRN (01:44)
[2020-12-27] MEDS ORDERED: Senokot S 8.6-50 MG TAB PO PRN (01:44)
[2020-12-27 02:26] VITALS: BMI 32.9
[2020-12-27 02:31] LABS: SARS-CoV-2 NAA Rapid Test DETECTED (NotDetected)
[2020-12-27 04:28] LABS: ALT (SGPT) 31 U/L (8-55); AST (SGOT) 27 U/L (5-34); Albumin 3.7 g/dL (3.5-5.0); Alkaline Phosphatase 153 U/L (40-110); Anion Gap 11 mmol/L (10-20); BUN (Urea Nitrogen) 10 mg/dL (9.8-20.1); Bilirubin, Total 0.5 mg/dL (0.2-1.2); Calc. Creatinine Clearance 123 mL/min (70-130); Calcium 9.4 mg/dL (7.8-10.44); Carbon Dioxide 25 mmol/L (22-29); Chloride 106 mmol/L (98-107); Globulin 3.5 g/dL (2.4-3.5); Glucose 82 mg/dL (70-105); Potassium 3.8 mmol/L (3.5-5.1); Protein, Total 7.2 g/dL (6.0-8.3); Sodium 138 mmol/L (136-145)
[2020-12-27 04:33] LABS: #Eosinphils 0.1 thou/uL (0.0-0.7); #Lymphocytes 2.3 thou/uL (1.20-3.40); #Neutrophils 4.6 thou/uL (1.40-6.50); %Basophils 0.4 % (0.0-1.0); %Eosinophils 1.2 % (0.0-10.0); %Lymphocytes 28.6 % (21.0-51.0); %Monocytes 12.5 % (0.0-10.0); %Neutrophils 57.3 % (42.0-75.0); Hemoglobin 13.1 g/dL (12.0-16.0); Mean Corpuscular HGB CONC 34.9 g/dL (32.0-36.0); Mean Corpuscular Volume 88.9 fL (78.0-98.0); Mean Platelet Volume 7.1 fL (7.4-10.4); Platelet Count 232 thou/uL (130-400); RBC Distribution Width 13.2 % (11.5-14.5); Red Blood Cell (RBC) Count 4.21 mill/uL (4.20-5.40)
[2020-12-27] MEDS ORDERED: Dexamethasone 4 MG TAB PO SCH (08:00)
[2020-12-27] MEDS ORDERED: Metoprolol Tartrate 50 MG TAB PO SCH (09:00)
[2020-12-27] MEDS ORDERED: Ascorbic Acid 500 mg Chewable Tablet PO SCH (09:00)
[2020-12-27] MEDS ORDERED: Enoxaparin Sodium 100 MG/ML SYRINGE SC SCH (09:00)
[2020-12-27] MEDS ORDERED: Aspirin 81 mg Enteric Coated Tablet PO SCH (09:00)
[2020-12-27] MEDS ORDERED: DULoxetine 30 MG CAP PO SCH (09:00)
[2020-12-27] MEDS: Famotidine 20 MG TAB PO SCH ×2 (09:00→10:05)
[2020-12-27] MEDS: Zinc Sulfate 220 MG CAP PO SCH ×2 (09:00→10:06)
[2020-12-27] MEDS ORDERED: Atorvastatin Calcium 40 MG TAB PO SCH (09:00)
[2020-12-27 10:00] VITALS: BP 132/82; TEMP 97.7
[2020-12-27] MEDS ORDERED: Cholecalciferol 1,000 UNITS (25 MCG) TAB PO SCH (21:00)
== END 2020-12-27 12:17 | disposition home or self-care (01) | DRG 175 ==
LOC: ERS 20:22 → ERHOLD 22:41 → 2SW 12-27 04:44
PROVIDERS: ADMIT Internal Medicine; ATTEND Family Medicine
PROC: 8E0ZXY6 Isolation (ICD-10-PCS; principal; 2020-12-27)
DX: I26.99 Other pulmonary embolism without acute cor pulmonale (principal); U07.1 COVID-19; J96.01 Acute respiratory failure with hypoxia; J98.11 Atelectasis; E78.5 Hyperlipidemia, unspecified; F17.210 Nicotine dependence, cigarettes, uncomplicated; I10 Essential (primary) hypertension; I25.10 Atherosclerotic heart disease of native coronary artery without angina pectoris; F32.9 Major depressive disorder, single episode, unspecified; I25.2 Old myocardial infarction; Z95.5 Presence of coronary angioplasty implant and graft; Z90.49 Acquired absence of other specified parts of digestive tract; Z90.710 Acquired absence of both cervix and uterus; Z90.721 Acquired absence of ovaries, unilateral; Z79.01 Long term (current) use of anticoagulants; Z79.82 Long term (current) use of aspirin
CPT/HCPCS: 36415; 80053; 82728; 83880; 84484; 85025; 85610; 85730; 86140; 93005; 93306; 93970; 96374; 96375; J1650; J1885; J2270; J8540; U0002; U0005

== ENCOUNTER 2021-05-11 14:19 | Outpatient (CLI) | payer BC | END 2021-05-11 14:20 | disposition home or self-care (01) | LOC: RAD 14:19 → SJX 14:19 → RAD 14:20 → EDSTATUS 15:19 | PROVIDERS: ATTEND Internal Medicine | DX: R06.00 Dyspnea, unspecified (principal) | CPT/HCPCS: 71046 ==

== ENCOUNTER 2021-09-21 16:03 | Outpatient (CLI) | payer BC | END 2021-09-21 16:04 | disposition home or self-care (01) | LOC: BICMAMMO 16:03 | PROVIDERS: ATTEND Family Medicine | DX: Z12.31 Encounter for screening mammogram for malignant neoplasm of breast (principal); Z91.89 Other specified personal risk factors, not elsewhere classified; Z80.3 Family history of malignant neoplasm of breast | CPT/HCPCS: 77063; 77067 ==

== ENCOUNTER 2022-06-19 01:01 | Observation (INO) | payer OTHER, SELFPAY ==
[2022-06-19 01:34] LABS: #Basophils 0.1 thou/uL (0.0-0.2); #Eosinphils 0.2 thou/uL (0.0-0.7); #Lymphocytes 4.2 thou/uL (1.20-3.40); #Monocytes 0.8 thou/uL (0.11-0.59); #Neutrophils 6.1 thou/uL (1.40-6.50); %Basophils 0.9 % (0.0-1.0); %Eosinophils 1.7 % (0.0-10.0); %Lymphocytes 37.2 % (21.0-51.0); %Monocytes 6.8 % (0.0-10.0); %Neutrophils 53.3 % (42.0-75.0); Hemoglobin 14.2 g/dL (12.0-16.0); Mean Corpuscular HGB CONC 34.2 g/dL (32.0-36.0); Mean Corpuscular Hemoglobin 30.4 pg (27.0-31.0); Mean Platelet Volume 7.3 fL (7.4-10.4); Platelet Count 230 10x3/uL (130-400); RBC Distribution Width 13.1 % (11.5-14.5); Red Blood Cell (RBC) Count 4.67 mill/uL (4.20-5.40); White Blood Cell (WBC) Count 11.4 10x3/uL (4.8-10.8)
[2022-06-19 01:46] LABS: INR-International Normal Ratio 0.9; PTT 29.3 sec (22.9-36.1); Prothrombin Time 12.3 sec (12.0-14.7)
[2022-06-19 01:47] LABS: D-Dimer Test 1.14 *mcg/mL (0.27-0.43)
[2022-06-19] MEDS ORDERED: Nitroglycerin 0.4 MG TAB 1 EACH ONE (01:56)
[2022-06-19 01:57] LABS: ALT (SGPT) 26 U/L (8-55); AST (SGOT) 22 U/L (5-34); Albumin 4.2 g/dL (3.5-5.0); Alkaline Phosphatase 136 U/L (40-110); Anion Gap 15 mmol/L (10-20); BUN (Urea Nitrogen) 16 mg/dL (9.8-20.1); Bilirubin, Total 0.2 mg/dL (0.2-1.2); Calc. Creatinine Clearance 0 mL/min (70-130); Calcium 10.1 mg/dL (7.8-10.44); Carbon Dioxide 22 mmol/L (22-29); Chloride 107 mmol/L (98-107); Estimated GFR 99; Globulin 2.6 g/dL (2.4-3.5); Glucose 93 mg/dL (70-105); Lipase 131 U/L (8-78); Protein, Total 6.8 g/dL (6.0-8.3); Sodium 140 mmol/L (136-145)
[2022-06-19] MEDS ORDERED: Ondansetron ODT 4 MG TAB ONE (02:30)
[2022-06-19] MEDS ORDERED: Acetaminophen 325 MG TAB PO PRN (05:06)
[2022-06-19] MEDS ORDERED: Nitroglycerin 0.4 MG TAB (25 Tab Bottle) SL PRN (05:06)
[2022-06-19] MEDS ORDERED: Ondansetron PF 4 MG/2 ML Vial IVP PRN (05:06)
[2022-06-19] MEDS ORDERED: Morphine 4 MG/ML VIAL SLOW IVP PRN (05:09)
[2022-06-19] MEDS ORDERED: Aspirin Chewable 81 MG TAB PO SCH (05:15)
[2022-06-19 09:01] LABS: Cardiac Risk 7.1 (Less than 4.5)
[2022-06-19] MEDS ORDERED: Iopamidol-370 76% 500 ML 1 ML ONE (09:39)
[2022-06-19 11:07] VITALS: BMI 30.4
[2022-06-19] MEDS ORDERED: FLU VACC QS2022-23(6MOS UP)/PF 60 MCG/0.5 ML SYRINGE IM ONE (11:30)
[2022-06-19] MEDS: Aspirin Chewable 81 MG TAB PO SCH (12:26)
[2022-06-19 13:27] LABS: Troponin I Less than 0.010 ng/mL (< 0.028)
[2022-06-19] MEDS ORDERED: ADENOSINE 60 MG/20 ML VIAL ONE (13:32)
[2022-06-19 16:13] LABS: Troponin I Less than 0.010 ng/mL (< 0.028)
[2022-06-19] MEDS: Carvedilol 3.125 MG TAB PO SCH (20:22)
[2022-06-19] MEDS ORDERED: Atorvastatin Calcium 40 MG TAB PO SCH (21:00)
[2022-06-20 04:24] LABS: #Basophils 0.1 thou/uL (0.0-0.2); #Eosinphils 0.2 thou/uL (0.0-0.7); #Lymphocytes 2.9 thou/uL (1.20-3.40); #Monocytes 0.6 thou/uL (0.11-0.59); #Neutrophils 3.4 thou/uL (1.40-6.50); %Basophils 1.7 % (0.0-1.0); %Eosinophils 2.2 % (0.0-10.0); %Lymphocytes 40.5 % (21.0-51.0); %Monocytes 8.6 % (0.0-10.0); Hemoglobin 14.3 g/dL (12.0-16.0); Mean Corpuscular HGB CONC 33.1 g/dL (32.0-36.0); Mean Corpuscular Hemoglobin 29.7 pg (27.0-31.0); Mean Corpuscular Volume 89.7 fl (78.0-98.0); Mean Platelet Volume 7.4 fL (7.4-10.4); Platelet Count 203 10x3/uL (130-400); RBC Distribution Width 13.1 % (11.5-14.5); Red Blood Cell (RBC) Count 4.81 mill/uL (4.20-5.40); White Blood Cell (WBC) Count 7.1 10x3/uL (4.8-10.8)
[2022-06-20 04:42] LABS: Anion Gap 12 mmol/L (10-20); BUN (Urea Nitrogen) 14 mg/dL (9.8-20.1); Calc. Creatinine Clearance 128 mL/min (70-130); Calcium 9.5 mg/dL (7.8-10.44); Carbon Dioxide 23 mmol/L (22-29); Chloride 109 mmol/L (98-107); Estimated GFR 105; Glucose 90 mg/dL (70-105); Sodium 140 mmol/L (136-145)
[2022-06-20 08:07] VITALS: BP 135/88; TEMP 97.9
[2022-06-20] MEDS: Carvedilol 3.125 MG TAB PO SCH (14:31)
[2022-06-20] MEDS: Aspirin Chewable 81 MG TAB PO SCH (14:32)
== END 2022-06-20 14:42 | disposition home or self-care (01) ==
LOC: ERS 01:01 → SUATTDRO 01:01 → 2SW 04:57
PROVIDERS: ADMIT Internal Medicine; ATTEND Internal Medicine
DX: R07.89 Other chest pain (principal); I11.0 Hypertensive heart disease with heart failure; I50.32 Chronic diastolic (congestive) heart failure; I25.10 Atherosclerotic heart disease of native coronary artery without angina pectoris; I25.2 Old myocardial infarction; E78.00 Pure hypercholesterolemia, unspecified; Z86.711 Personal history of pulmonary embolism; Z87.891 Personal history of nicotine dependence; Z79.01 Long term (current) use of anticoagulants; Z79.82 Long term (current) use of aspirin; Z79.899 Other long term (current) drug therapy; Z95.5 Presence of coronary angioplasty implant and graft; Z20.822 Contact with and (suspected) exposure to COVID-19
CPT/HCPCS: 36415; 71045; 71275; 78452; 80048; 80053; 80061; 83690; 83880; 84484; 85025; 85379; 85610; 85730; 93005; 93017; 94760; 96372; A9500; G0378; J0153; J1650; Q0162; Q9967; U0003; U0005

== ENCOUNTER 2023-06-01 16:48 | Emergency (ER) | payer OTHER | END 2023-06-01 19:07 | disposition home or self-care (01) | LOC: ERS 16:48 | DX: M79.605 Pain in left leg (principal); M79.604 Pain in right leg; Z76.0 Encounter for issue of repeat prescription; Z86.711 Personal history of pulmonary embolism; Z95.5 Presence of coronary angioplasty implant and graft; Z79.01 Long term (current) use of anticoagulants; Z79.899 Other long term (current) drug therapy | CPT/HCPCS: 93005; 93970 ==

== ENCOUNTER 2023-06-15 16:23 | Inpatient (IN) | payer OTHER ==
[~2023-06-15 16:23] MED LIST changes: +Iopamidol 370 76% 100 ML VIAL ONE; -Lidocaine 1% PF 5 ML VIAL ONE; -PROPOFOL 200 MG/20 ML VIAL ONE
[2023-06-15 16:52] LABS: #Basophils 0.1 thou/uL (0.0-0.2); #Eosinphils 0.2 thou/uL (0.0-0.7); #Monocytes 1.2 thou/uL (0.11-0.59); #Neutrophils 12.7 thou/uL (1.40-6.50); %Basophils 0.6 % (0.0-1.0); %Eosinophils 0.9 % (0.0-10.0); %Lymphocytes 14.4 % (21.0-51.0); %Monocytes 7.3 % (0.0-10.0); %Neutrophils 76.3 % (42.0-75.0); Hematocrit 42.6 % (36.0-47.0); Hemoglobin 14.1 g/dL (12.0-16.0); Mean Corpuscular HGB CONC 33.1 g/dL (32.0-36.0); Mean Corpuscular Hemoglobin 27.8 pg (27.0-31.0); Mean Corpuscular Volume 83.9 fl (78.0-98.0); Platelet Count 154 10x3/uL (130-400); RBC Distribution Width 16.3 % (11.5-14.5); Red Blood Cell (RBC) Count 5.08 mill/uL (4.20-5.40); White Blood Cell (WBC) Count 16.6 10x3/uL (4.8-10.8)
[2023-06-15 17:22] LABS: ALT (SGPT) 51 U/L (8-55); AST (SGOT) 38 U/L (5-34); Albumin 4.8 g/dL (3.5-5.0); Alkaline Phosphatase 138 U/L (40-110); Anion Gap 15 mmol/L (10-20); BUN (Urea Nitrogen) 20 mg/dL (9.8-20.1); Bilirubin, Total 0.3 mg/dL (0.2-1.2); Calc. Creatinine Clearance 0 mL/min (70-130); Calcium 9.9 mg/dL (7.8-10.44); Carbon Dioxide 19 mmol/L (22-29); Chloride 106 mmol/L (98-107); Estimated GFR 84; Globulin 3.6 g/dL (2.4-3.5); Glucose 108 mg/dL (70-105); Potassium 4.3 mmol/L (3.5-5.1); Protein, Total 8.4 g/dL (6.0-8.3); Sodium 136 mmol/L (136-145)
[2023-06-15 17:43] LABS: Critical Call Chem Troponin I ERS.JI@1742; Troponin I 0.719 ng/mL (< 0.028)
[2023-06-15] MEDS ORDERED: Nitroglycerin 2% Ointment 1 INCH/1 GM Packet ONE (19:17)
[2023-06-15] MEDS ORDERED: Ketorolac Tromethamine 30 MG (1 mL) VIAL ONE (19:17)
[2023-06-15 19:22] LABS: INR-International Normal Ratio 1.1; PTT 28.7 sec (22.9-36.1); Prothrombin Time 14.7 sec (12.0-14.7)
[2023-06-15 19:33] LABS: Influenza A by NAA Not Detected (NotDetected); Influenza B by NAA Not Detected (NotDetected); SARS-CoV-2 NAA Rapid Test Not Detected (NotDetected)
[2023-06-15] MEDS ORDERED: Heparin 25,000 units/D5W 500 ML ONE (19:58)
[2023-06-15] MEDS ORDERED: Heparin 5,000 UNITS/ML VIAL ONE (19:58)
[2023-06-15] MEDS ORDERED: Heparin 25,000 units/D5W 500 ML IVPB SCH (20:30)
[2023-06-15] MEDS ORDERED: Heparin 10,000 UNITS/ 10 ML VIAL SLOW IVP SCH ×2 (20:30→23:00)
[2023-06-15 20:49] LABS: Critical Call Chem Troponin I NUR.SH13@2048; Troponin I 2.439 ng/mL (< 0.028)
[2023-06-15] MEDS ORDERED: cefTRIAXone\\ROCEPHIN 1 GM in Sodium Chloride 0.9% 100 ML IVPB SCH (21:00)
[2023-06-15 21:48] LABS: Lactic Acid 0.9 mmol/L (0.5-2.2)
[2023-06-15] MEDS ORDERED: cefTRIAXone (ROCEPHIN) 1 GM VIAL ONE (22:17)
[2023-06-15] MEDS ORDERED: Sodium Chloride 0.9% 100 ML ONE (22:17)
[2023-06-15] MEDS: Doxycycline 100 MG in Sodium Chloride 0.9% 100 ML IVPB SCH (22:26)
[2023-06-15] MEDS: Topiramate 25 MG TAB PO SCH (22:26)
[2023-06-15] MEDS ORDERED: Heparin 25,000 units/D5W 500 ML IV SCH (23:00)
[2023-06-15 23:48] LABS: Legionella Urinary Ag Negative (Negative); Strep pneumo Urine Ag NEGATIVE (NEGATIVE)
[2023-06-15] MEDS ORDERED: Morphine 4 MG/ML VIAL ONE (23:52)
[2023-06-16] MEDS: Rosuvastatin 10 MG TAB PO SCH (00:01)
[2023-06-16] MEDS: Morphine 2 MG/ML VIAL SLOW IVP SCH ×2 (00:02→12:53)
[2023-06-16] MEDS: Heparin 25,000 units/D5W 500 ML IVPB SCH (00:22)
[2023-06-16 01:59] LABS: #Basophils 0.1 thou/uL (0.0-0.2); #Eosinphils 0.3 thou/uL (0.0-0.7); #Neutrophils 7.8 thou/uL (1.40-6.50); %Basophils 0.6 % (0.0-1.0); %Eosinophils 2.3 % (0.0-10.0); %Lymphocytes 28.4 % (21.0-51.0); %Monocytes 7.7 % (0.0-10.0); %Neutrophils 60.7 % (42.0-75.0); Hematocrit 40.5 % (36.0-47.0); Hemoglobin 13.1 g/dL (12.0-16.0); Mean Corpuscular HGB CONC 32.3 g/dL (32.0-36.0); Mean Corpuscular Hemoglobin 27.9 pg (27.0-31.0); Mean Corpuscular Volume 86.4 fl (78.0-98.0); Mean Platelet Volume 10.2 fL (7.4-10.4); Platelet Count 142 10x3/uL (130-400); RBC Distribution Width 16.5 % (11.5-14.5); Red Blood Cell (RBC) Count 4.69 mill/uL (4.20-5.40); White Blood Cell (WBC) Count 12.9 10x3/uL (4.8-10.8)
[2023-06-16] MEDS ORDERED: Heparin 5,000 UNITS/ML VIAL ONE (02:38)
[2023-06-16] MEDS: Heparin 10,000 UNITS/ 10 ML VIAL SLOW IVP SCH (02:40)
[2023-06-16 03:00] LABS: Anion Gap 16 mmol/L (10-20); BUN (Urea Nitrogen) 21 mg/dL (9.8-20.1); Calc. Creatinine Clearance 101 mL/min (70-130); Carbon Dioxide 16 mmol/L (22-29); Chloride 109 mmol/L (98-107); Estimated GFR 86; Glucose 105 mg/dL (70-105); Potassium 3.8 mmol/L (3.5-5.1); Sodium 137 mmol/L (136-145)
[2023-06-16 03:09] LABS: Troponin I 6.715 ng/mL (< 0.028)
[2023-06-16] MEDS ORDERED: Nitroglycerin 2% Ointment 1 INCH/1 GM Packet ONE (03:44)
[2023-06-16] MEDS: Nitroglycerin 2% Ointment 1 INCH/1 GM Packet TOP SCH (03:55)
[2023-06-16 05:43] LABS: Actual Bicarbonate (HCO3v) 16.1 mEq/L (22-28); Base Excess -6.3 mEq/L (-2.0 to +3.0); Chloride (VBG) 107 mmol/L (98-106); Hematocrit-VBG 43 % (36.0-47.0); Hemoglobin (Hb) 14.5 g/dL (11.7-16.0); Potassium (VBG) 4.11 mmol/L (3.70-5.30); Sodium 138 mmol/L (133-146); pH (venous) 7.429 (7.32-7.43)
[2023-06-16] MEDS ORDERED: Furosemide 40 MG (4 mL) VIAL ONE (05:54)
[2023-06-16] MEDS: Furosemide 40 MG (4 mL) VIAL SLOW IVP SCH (06:02)
[2023-06-16 06:23] LABS: Hemoglobin A1c 5.1 % (4.0-6.0)
[2023-06-16] MEDS ORDERED: Nitroglycerin 50 MG/250 ML BOT 250 ML ONE (06:26)
[2023-06-16 06:27] LABS: Critical Call Chem Troponin I NUR.JRH@0625; Troponin I 9.666 ng/mL (< 0.028)
[2023-06-16 06:30] LABS: Cardiac Risk 6.2 (Less than 4.5)
[2023-06-16] MEDS ORDERED: Ondansetron PF 4 MG/2 ML Vial ONE (06:41)
[2023-06-16] MEDS: Nitroglycerin 50 MG/250 ML BOT 250 ML IVPB SCH (06:49)
[2023-06-16] MEDS: Ondansetron PF 4 MG/2 ML Vial IVP PRN (06:49)
[2023-06-16] MEDS ORDERED: Aspirin 81 mg Enteric Coated Tablet ONE (08:58)
[2023-06-16] MEDS ORDERED: Metoprolol Tartrate 25 MG TAB ONE (08:58)
[2023-06-16] MEDS: Aspirin 81 mg Enteric Coated Tablet PO SCH (09:00)
[2023-06-16 09:43] LABS: PTT Greater than 250.0 sec (22.9-36.1)
[2023-06-16] MEDS ORDERED: Iopamidol 370 76% 100 ML VIAL ONE (10:15)
[2023-06-16 10:31] LABS: Anion Gap 16 mmol/L (10-20); BUN (Urea Nitrogen) 20 mg/dL (9.8-20.1); Calc. Creatinine Clearance 102 mL/min (70-130); Calcium 8.9 mg/dL (7.8-10.44); Carbon Dioxide 20 mmol/L (22-29); Chloride 105 mmol/L (98-107); Estimated GFR 88; Glucose 116 mg/dL (70-105); Magnesium 1.9 mg/dL (1.6-2.6); Potassium 3.8 mmol/L (3.5-5.1); Sodium 137 mmol/L (136-145)
[2023-06-16 10:42] LABS: PTT 173.4 sec (22.9-36.1)
[2023-06-16] MEDS: Furosemide 20 MG (2 mL) VIAL SLOW IVP SCH (12:54)
[2023-06-16 13:30] LABS: Critical Call Chem Troponin I NUR.PLF @1330; Troponin I 16.615 ng/mL (< 0.028)
[2023-06-16] MEDS: Sodium Chloride 0.9% 1,000 ML IV SCH ×2 (14:03→18:04)
[2023-06-16] MEDS ORDERED: Heparin 10,000 UNITS/ 10 ML VIAL ONE (14:10)
[2023-06-16 14:15] LABS: INR-International Normal Ratio 1.1; PTT 30.2 sec (22.9-36.1); Prothrombin Time 14.1 sec (12.0-14.7)
[2023-06-16] MEDS ORDERED: Communication Order-Pharmacy FS SCH (14:15)
[2023-06-16] MEDS ORDERED: EPINEPHrine 1 MG/10 ML Abboject SYRINGE ONE (15:10)
[2023-06-16] MEDS ORDERED: PHENYLEPHRINE-NS 100 MCG/ML 10 ML SYRINGE ONE (15:10)
[2023-06-16] MEDS ORDERED: fentaNYL 50 mcg/mL 1 mL Vial ONE (15:14)
[2023-06-16] MEDS ORDERED: Midazolam HCl 2 mg/2 ml Vial ONE (15:15)
[2023-06-16] MEDS: Morphine 2 MG/ML VIAL SLOW IVP PRN (16:28)
[2023-06-16] MEDS ORDERED: Acetaminophen/Codeine 30-300mg Tablet PO PRN (16:31)
[2023-06-16] MEDS ORDERED: Sodium Chloride 0.9% 200 ML IV PRN (16:31)
[2023-06-16] MEDS ORDERED: [UNRECOGNIZED DRUG - OTHER] FS PRN (18:30)
[2023-06-16] MEDS: Rosuvastatin 20 MG TAB PO SCH (20:22)
[2023-06-17 04:46] LABS: #Basophils 0.1 thou/uL (0.0-0.2); #Eosinphils 0.2 thou/uL (0.0-0.7); #Monocytes 1.1 thou/uL (0.11-0.59); #Neutrophils 10.3 thou/uL (1.40-6.50); %Basophils 0.4 % (0.0-1.0); %Eosinophils 1.1 % (0.0-10.0); %Lymphocytes 14.8 % (21.0-51.0); %Monocytes 8.3 % (0.0-10.0); %Neutrophils 75.1 % (42.0-75.0); Hematocrit 33.8 % (36.0-47.0); Hemoglobin 10.7 g/dL (12.0-16.0); Mean Corpuscular HGB CONC 31.7 g/dL (32.0-36.0); Mean Corpuscular Hemoglobin 27.6 pg (27.0-31.0); Mean Corpuscular Volume 87.3 fl (78.0-98.0); Mean Platelet Volume 9.7 fL (7.4-10.4); Platelet Count 129 10x3/uL (130-400); Red Blood Cell (RBC) Count 3.87 mill/uL (4.20-5.40); White Blood Cell (WBC) Count 13.7 10x3/uL (4.8-10.8)
[2023-06-17 05:24] LABS: Anion Gap 12 mmol/L (10-20); BUN (Urea Nitrogen) 14 mg/dL (9.8-20.1); Calc. Creatinine Clearance 109 mL/min (70-130); Calcium 8.8 mg/dL (7.8-10.44); Carbon Dioxide 20 mmol/L (22-29); Chloride 108 mmol/L (98-107); Estimated GFR 95; Glucose 112 mg/dL (70-105); Magnesium 1.8 mg/dL (1.6-2.6); Potassium 3.6 mmol/L (3.5-5.1); Sodium 136 mmol/L (136-145)
[2023-06-17] MEDS ORDERED: Sodium Chloride 0.9% 1,000 ML IV SCH (06:00)
[2023-06-17] MEDS: Morphine 2 MG/ML VIAL SLOW IVP SCH (09:15)
[2023-06-17] MEDS: Lorazepam 2 MG/ML VIAL ONE (09:15)
[2023-06-17] MEDS: Lorazepam 2 MG/ML VIAL SLOW IVP SCH (09:45)
[2023-06-17 14:06] LABS: #Basophils 0.1 thou/uL (0.0-0.2); #Eosinphils 0.1 thou/uL (0.0-0.7); #Monocytes 1.1 thou/uL (0.11-0.59); #Neutrophils 7.9 thou/uL (1.40-6.50); %Basophils 0.4 % (0.0-1.0); %Eosinophils 0.9 % (0.0-10.0); %Lymphocytes 19.3 % (21.0-51.0); %Monocytes 9.5 % (0.0-10.0); %Neutrophils 69.5 % (42.0-75.0); Hematocrit 33.6 % (36.0-47.0); Hemoglobin 10.5 g/dL (12.0-16.0); Mean Corpuscular HGB CONC 31.3 g/dL (32.0-36.0); Mean Corpuscular Hemoglobin 27.6 pg (27.0-31.0); Mean Corpuscular Volume 88.4 fl (78.0-98.0); Mean Platelet Volume 10.2 fL (7.4-10.4); Platelet Count 132 10x3/uL (130-400); RBC Distribution Width 16.9 % (11.5-14.5); White Blood Cell (WBC) Count 11.3 10x3/uL (4.8-10.8)
[2023-06-17] MEDS ORDERED: Iopamidol 370 76% 100 ML VIAL ONE (14:26)
[2023-06-17] MEDS: Acetaminophen/Codeine 30-300mg Tablet PO PRN (18:05)
[2023-06-17 18:35] LABS: Hematocrit 33.5 % (36.0-47.0); Hemoglobin 11.1 g/dL (12.0-16.0); Platelet Count 135 10x3/uL (130-400)
[2023-06-17] MEDS ORDERED: NOREPINEPHRINE 8 MG/250 ML-D5W 250 ML IVPB SCH (20:45)
[2023-06-17] MEDS: Sodium Chloride 0.9% 500 ML IV SCH ×2 (20:45→22:00)
[2023-06-17 21:11] LABS: Hematocrit 27.1 % (36.0-47.0); Hemoglobin 8.6 g/dL (12.0-16.0)
[2023-06-17] MEDS: Sodium Chloride 0.9% 1,000 ML IV SCH (23:07)
[2023-06-18 02:22] LABS: #Basophils 0.1 thou/uL (0.0-0.2); #Eosinphils 0.2 thou/uL (0.0-0.7); #Monocytes 1.1 thou/uL (0.11-0.59); %Basophils 0.4 % (0.0-1.0); %Eosinophils 1.5 % (0.0-10.0); %Lymphocytes 16.6 % (21.0-51.0); %Neutrophils 71.2 % (42.0-75.0); Mean Corpuscular Hemoglobin 28.1 pg (27.0-31.0); Mean Platelet Volume 10.2 fL (7.4-10.4); Platelet Count 122 10x3/uL (130-400); RBC Distribution Width 16.5 % (11.5-14.5); Red Blood Cell (RBC) Count 4.16 mill/uL (4.20-5.40); White Blood Cell (WBC) Count 11.3 10x3/uL (4.8-10.8)
[2023-06-18 02:36] LABS: Hematocrit 36.6 % (36.0-47.0); Hemoglobin 11.7 g/dL (12.0-16.0)
[2023-06-18 02:38] LABS: INR-International Normal Ratio 1.3; Prothrombin Time 16.6 sec (12.0-14.7)
[2023-06-18 02:39] LABS: PTT 31.9 sec (22.9-36.1)
[2023-06-18 03:28] LABS: Anion Gap 11 mmol/L (10-20); BUN (Urea Nitrogen) 11 mg/dL (9.8-20.1); Calc. Creatinine Clearance 127 mL/min (70-130); Calcium 8.4 mg/dL (7.8-10.44); Carbon Dioxide 18 mmol/L (22-29); Chloride 111 mmol/L (98-107); Estimated GFR 103; Glucose 87 mg/dL (70-105); Magnesium 1.8 mg/dL (1.6-2.6); Potassium 3.9 mmol/L (3.5-5.1); Sodium 136 mmol/L (136-145)
[2023-06-18] MEDS ORDERED: Iopamidol 370 76% 100 ML VIAL ONE (10:42)
[2023-06-18] MEDS: Acetaminophen 325 MG TAB PO PRN (16:23)
[2023-06-18] MEDS: Nitroglycerin 0.4 MG TAB (25 Tab Bottle) SL PRN (16:53)
[2023-06-18 18:46] LABS: Critical Call Chem Troponin I NUR.LRH @1845; Troponin I 7.287 ng/mL (< 0.028)
[2023-06-18 22:50] LABS: Critical Call Chem Troponin I RESULT DECREASING; Troponin I 6.553 ng/mL (< 0.028)
[2023-06-19 04:47] LABS: Magnesium 1.9 mg/dL (1.6-2.6)
[2023-06-19] MEDS: Lorazepam 2 MG/ML VIAL SLOW IVP SCH (05:54)
[2023-06-19] MEDS ORDERED: Albumin 5% 500 ML ONE (06:22)
[2023-06-19] MEDS ORDERED: Heparin 10,000 UNITS/1 ML VIAL 30,000 UNITS in Sodium Chloride 0.9% 1,000 ML FS SCH (06:45)
[2023-06-19] MEDS ORDERED: Vecuronium 10 MG VIAL ONE ×2 (06:49→10:10)
[2023-06-19] MEDS ORDERED: Dexmedetomidine 200 MCG/2 ML VIAL ONE (06:49)
[2023-06-19] MEDS ORDERED: fentaNYL PF 100 MCG/2 ML SYRINGE ONE (06:49)
[2023-06-19] MEDS ORDERED: PROPOFOL 20 ML ONE (06:50)
[2023-06-19] MEDS ORDERED: Midazolam HCl 2 mg/2 ml Vial ONE (06:50)
[2023-06-19] MEDS ORDERED: PHENYLEPHRINE-NS 100 MCG/ML 10 ML SYRINGE ONE ×2 (06:52→09:04)
[2023-06-19] MEDS ORDERED: Glycopyrrolate 0.2 MG/ML 5 ML SYRINGE ONE (06:52)
[2023-06-19] MEDS ORDERED: Milrinone 10 MG/10 ML VIAL ONE (07:19)
[2023-06-19] MEDS ORDERED: Esmolol 100 MG/10 ML VIAL ONE (07:39)
[2023-06-19] MEDS ORDERED: Dexamethasone 20 MG/5 ML VIAL ONE (07:39)
[2023-06-19] MEDS ORDERED: Heparin 5,000 UNITS/ML VIAL ONE (08:10)
[2023-06-19] MEDS ORDERED: Cardioplegic Soln 1,000 ML BAG ONE (08:10)
[2023-06-19] MEDS ORDERED: Calcium Chloride 1 GM/10 ML Abboject SYRINGE ONE (08:10)
[2023-06-19] MEDS ORDERED: Protamine Sulfate 250 MG/25 ML VIAL ONE (08:10)
[2023-06-19] MEDS ORDERED: Nitroglycerin 50 MG/250 ML BOT ONE (08:10)
[2023-06-19] MEDS ORDERED: Thrombin 5000 UNITS/5 ML VIAL ONE (08:10)
[2023-06-19] MEDS ORDERED: Mannitol 12.5 GM/50 ML ONE (08:10)
[2023-06-19] MEDS ORDERED: Heparin 30,000 units/30 ml VIAL ONE (08:10)
[2023-06-19] MEDS ORDERED: Magnesium 5 GM/10 ML VIAL ONE (08:10)
[2023-06-19] MEDS ORDERED: Lidocaine 1% PF 5 ML VIAL ONE (08:10)
[2023-06-19] MEDS ORDERED: Potassium Chloride 60 mEq (30 mL) VIAL ONE (08:10)
[2023-06-19] MEDS ORDERED: Rocuronium Bromide 10 MG/ML (10ML VIAL) ONE (08:10)
[2023-06-19] MEDS ORDERED: Vancomycin 1 GM VIAL ONE (08:10)
[2023-06-19] MEDS ORDERED: Sodium Bicarb 50 mEq/50 ML VIAL ONE (08:10)
[2023-06-19] MEDS ORDERED: Papaverine 60 MG/2 ML VIAL ONE (08:10)
[2023-06-19] MEDS ORDERED: Aminocaproic Acid 5 GM/20 ML VIAL ONE (08:10)
[2023-06-19] MEDS ORDERED: Lidocaine 2% PF 100 mg/5 ml Syringe ONE (08:10)
[2023-06-19] MEDS ORDERED: Insulin Regular 300 UNITS/3 ML VIAL ONE (09:45)
[2023-06-19] MEDS ORDERED: NOREPINEPHRINE 8 MG/250 ML-D5W 250 ML ONE (10:59)
[2023-06-19] MEDS ORDERED: Promethazine HCl 25 MG/ML VIAL IM PRN (12:15)
[2023-06-19] MEDS ORDERED: Ipratropium/Albuterol 3 ML NEB NEB PRN (12:15)
[2023-06-19] MEDS ORDERED: Albumin 5% 12.5 GM (250 mL) BOT IVPB PRN (12:15)
[2023-06-19] MEDS ORDERED: niCARdipine 25 MG in Sodium Chloride 0.9% 250 ML 250 ML IVPB PRN (12:15)
[2023-06-19] MEDS ORDERED: fentaNYL 50 mcg/mL 1 mL Vial SLOW IVP PRN ×2 (12:15)
[2023-06-19] MEDS ORDERED: Phenylephrine 40 MG in Sodium Chloride 0.9% 250 ML 250 ML IVPB PRN (12:15)
[2023-06-19] MEDS ORDERED: Mag-Al 1200 mg/1200 mg/30 ML UDCUP PO PRN (12:15)
[2023-06-19] MEDS ORDERED: Bisacodyl 10 MG SUPP PR PRN (12:15)
[2023-06-19] MEDS ORDERED: HYDROcodone/Acetaminophen 5/325 mg Tablet PO PRN ×2 (12:15)
[2023-06-19] MEDS ORDERED: Guaifenesin DM 100-10/5 ML UDCUP PO PRN (12:15)
[2023-06-19] MEDS ORDERED: Hetastarch 6% 500 ML 500 ML IVPB PRN (12:15)
[2023-06-19] MEDS ORDERED: Nitroglycerin 50 MG/250 ML BOT 250 ML IVPB PRN (12:15)
[2023-06-19 12:44] LABS: Actual Bicarbonate (HCO3a) 19.3 mEq/L (22-28); Base Excess (BEa) -7.9 mEq/L (-2.0 to +3.0); CO2 Tension 46.2 mmHg (35.0-45.0); Calcium, Ionized (arterial) 1.18 mmol/L (1.12-1.30); Carboxyhemoglobin (COHb) 0.6 gm% (0.0-3.0); Hematocrit-ABG 34 % (36.0-47.0); Hemoglobin (Hb) 11.4 g/dL (12.0-16.0); Potassium - ABG Lab 3.93 mmol/L (3.70-5.30); pH, Arterial 7.239 (7.35-7.45)
[2023-06-19] MEDS ORDERED: Dextrose 5% in Water 1,000 ML IV PRN (12:45)
[2023-06-19] MEDS ORDERED: Glucagon 1 MG/ML KIT SC PRN (12:45)
[2023-06-19] MEDS ORDERED: Dextrose 50% Abboject 50 ML SYRINGE SLOW IVP PRN (12:45)
[2023-06-19] MEDS ORDERED: HUMULIN R 100 UNITS in Sodium Chloride 0.9% 100 ML IVPB SCH (12:45)
[2023-06-19 12:47] LABS: Puncture Site Arterial Line
[2023-06-19] MEDS: Lactated Ringer's 1,000 ML IV SCH (12:49)
[2023-06-19 12:50] LABS: Hematocrit 32.2 % (36.0-47.0); Hemoglobin 10.3 g/dL (12.0-16.0); Manual Diff?? YES; Mean Corpuscular Hemoglobin 28.4 pg (27.0-31.0); Mean Corpuscular Volume 88.7 fl (78.0-98.0); Mean Platelet Volume 10.7 fL (7.4-10.4); Platelet Count 109 10x3/uL (130-400); Red Blood Cell (RBC) Count 3.63 mill/uL (4.20-5.40); White Blood Cell (WBC) Count 37.9 10x3/uL (4.8-10.8)
[2023-06-19] MEDS: Albumin 5% 12.5 GM (250 mL) BOT IVPB PRN (12:50)
[2023-06-19] MEDS: Post-Op Insulin Drip Protocol IVPB ONE (13:12)
[2023-06-19 13:16] LABS: Delete Auto Diff?? YES
[2023-06-19 13:18] LABS: Anion Gap 10 mmol/L (10-20); BUN (Urea Nitrogen) 12 mg/dL (9.8-20.1); Calc. Creatinine Clearance 127 mL/min (70-130); Calcium 7.6 mg/dL (7.8-10.44); Carbon Dioxide 18 mmol/L (22-29); Chloride 118 mmol/L (98-107); Estimated GFR 102; Glucose 112 mg/dL (70-105); Sodium 142 mmol/L (136-145)
[2023-06-19] MEDS: CEFAZOLIN 2 GM in Sodium Chloride 0.9% 100 ML IVPB SCH (13:32)
[2023-06-19] MEDS: Morphine 2 MG/ML VIAL SLOW IVP PRN (13:36)
[2023-06-19 13:51] LABS: Anisocytosis SLIGHT = 6-15 cells HPF (0-5); Band 7 % (5-11); Burr Cells SLIGHT = 2-5 cells HPF (0-1); CellaVision Operator ID LAB.KB; Lymphocytes 2 % (21-51); Monocytes 8 % (0-10); Myelocyte 1 % (0-0); Neutrophil 82 % (42-75); Nucleated RBC (Manual Ct) 1 % (0); Ovalocytes SLIGHT = 2-5 cells HPF (0-1); Platelet Adequacy Comment Platelets Decreased; Polychromasia SLIGHT = 2-3 cells HPF (0-2); Total Cell Count 101
[2023-06-19] MEDS: Potassium Chloride 20 MEQ (100 mL) BAG IVPB PRN (14:10)
[2023-06-19 14:33] LABS: INR-International Normal Ratio 1.7; PTT 32.7 sec (22.9-36.1); Prothrombin Time 19.7 sec (12.0-14.7)
[2023-06-19] MEDS ORDERED: Morphine 2 MG/ML VIAL SLOW IVP PRN (15:45)
[2023-06-19] MEDS ORDERED: Propofol BOLUS 1,000 MG/100 ML VIAL IV PRN (15:45)
[2023-06-19] MEDS ORDERED: Fentanyl BOLUS 250 ML IVPB PRN (15:45)
[2023-06-19] MEDS ORDERED: DISCONTINUE PREVIOUS NARCOTIC PAIN MEDICATIONS AND BENZODIAZEPINES FS SCH (15:45)
[2023-06-19] MEDS: Fentanyl CADD 100 ML IV SCH (15:48)
[2023-06-19] MEDS: Insulin Regular 300 UNITS/3 ML VIAL SC PRN (16:09)
[2023-06-19 18:13] LABS: Hematocrit 30.5 % (36.0-47.0); Hemoglobin 9.8 g/dL (12.0-16.0)
[2023-06-19 18:52] LABS: Potassium 4.4 mmol/L (3.5-5.1)
[2023-06-19] MEDS: Lorazepam 2 MG/ML VIAL SLOW IVP PRN (19:13)
[2023-06-19] MEDS: Atorvastatin Calcium 20 MG TAB PO SCH (20:32)
[2023-06-19] MEDS: Famotidine/PF 20 mg/2ml Vial SLOW IVP SCH (20:38)
[2023-06-19] MEDS: Propofol 1,000 MG/100 ML VIAL IV PRN (22:28)
[2023-06-20 04:42] LABS: #Monocytes 1.6 thou/uL (0.11-0.59); #Neutrophils 11.6 thou/uL (1.40-6.50); %Basophils 0.1 % (0.0-1.0); %Lymphocytes 11.4 % (21.0-51.0); %Monocytes 10.8 % (0.0-10.0); %Neutrophils 77.2 % (42.0-75.0); Hematocrit 29.7 % (36.0-47.0); Hemoglobin 9.4 g/dL (12.0-16.0); Mean Corpuscular HGB CONC 31.6 g/dL (32.0-36.0); Mean Corpuscular Hemoglobin 27.6 pg (27.0-31.0); Mean Corpuscular Volume 87.4 fl (78.0-98.0); RBC Distribution Width 17.6 % (11.5-14.5)
[2023-06-20 05:03] LABS: Anion Gap 13 mmol/L (10-20); BUN (Urea Nitrogen) 14 mg/dL (9.8-20.1); Calc. Creatinine Clearance 122 mL/min (70-130); Calcium 8.7 mg/dL (7.8-10.44); Carbon Dioxide 20 mmol/L (22-29); Chloride 117 mmol/L (98-107); Estimated GFR 100; Glucose 109 mg/dL (70-105); Potassium 4.5 mmol/L (3.5-5.1); Sodium 145 mmol/L (136-145)
[2023-06-20 05:13] LABS: Platelet Count 84 10x3/uL (130-400)
[2023-06-20] MEDS: Ondansetron PF 4 MG/2 ML Vial IVP PRN (07:41)
[2023-06-20] MEDS: Furosemide 40 MG (4 mL) VIAL SLOW IVP SCH (09:28)
[2023-06-20] MEDS: Enoxaparin 30 MG (0.3 mL) SYRINGE SC SCH (09:28)
[2023-06-20] MEDS ORDERED: Insulin Glargine 30 UNITS/0.3 ML VIAL SC PRN (12:35)
[2023-06-20] MEDS: Polyethylene Glycol 3350 17 GM Packet PO SCH (13:12)
[2023-06-20] MEDS: Albumin 25% 25 GM (100 mL) BOT IVPB SCH ×2 (13:49→23:57)
[2023-06-20] MEDS: Metoprolol Tartrate 25 MG TAB PO SCH ×2 (13:58→20:09)
[2023-06-20] MEDS: Aspirin Chewable 81 MG TAB PO SCH (13:58)
[2023-06-20] MEDS: fentaNYL 50 mcg/mL 1 mL Vial SLOW IVP PRN (16:49)
[2023-06-20] MEDS: HYDROcodone/Acetaminophen 5/325 mg Tablet PO PRN (18:05)
[2023-06-21 02:21] LABS: #Monocytes 1.4 thou/uL (0.11-0.59); #Neutrophils 10.7 thou/uL (1.40-6.50); %Basophils 0.3 % (0.0-1.0); %Eosinophils 0.1 % (0.0-10.0); %Lymphocytes 20.9 % (21.0-51.0); %Monocytes 9.2 % (0.0-10.0); %Neutrophils 68.9 % (42.0-75.0); Hematocrit 25.9 % (36.0-47.0); Hemoglobin 8.2 g/dL (12.0-16.0); Mean Corpuscular HGB CONC 31.7 g/dL (32.0-36.0); Mean Corpuscular Hemoglobin 28.4 pg (27.0-31.0); Mean Corpuscular Volume 89.6 fl (78.0-98.0); Mean Platelet Volume 11.6 fL (7.4-10.4); Red Blood Cell (RBC) Count 2.89 mill/uL (4.20-5.40); White Blood Cell (WBC) Count 15.5 10x3/uL (4.8-10.8)
[2023-06-21 02:24] LABS: Platelet Count 63 10x3/uL (130-400)
[2023-06-21 04:51] LABS: Anion Gap 11 mmol/L (10-20); BUN (Urea Nitrogen) 24 mg/dL (9.8-20.1); Calc. Creatinine Clearance 105 mL/min (70-130); Calcium 8.3 mg/dL (7.8-10.44); Carbon Dioxide 21 mmol/L (22-29); Chloride 109 mmol/L (98-107); Estimated GFR 84; Glucose 142 mg/dL (70-105); Potassium 3.8 mmol/L (3.5-5.1); Sodium 137 mmol/L (136-145)
[2023-06-21] MEDS: Furosemide 40 MG (4 mL) VIAL SLOW IVP SCH (09:33)
[2023-06-21] MEDS: NOREPINEPHRINE 8 MG/250 ML-D5W 250 ML IVPB PRN (09:33)
[2023-06-21] MEDS: Communication Order-Pharmacy FS ONE (09:39)
[2023-06-21] MEDS: Amiodarone 150 MG in Dextrose 5% in Water 100 ML IVPB SCH (17:51)
[2023-06-21] MEDS: Amiodarone 450 MG in Dextrose 5% in Water 250 ML IVPB SCH (17:51)
[2023-06-21] MEDS: Furosemide 100 MG (10 mL) VIAL SLOW IVP SCH (19:38)
[2023-06-21] MEDS: Rosuvastatin 20 MG TAB PO SCH (19:41)
[2023-06-22 04:13] LABS: #Basophils 0.1 thou/uL (0.0-0.2); #Monocytes 1.7 thou/uL (0.11-0.59); #Neutrophils 20.2 thou/uL (1.40-6.50); %Basophils 0.2 % (0.0-1.0); %Lymphocytes 9.7 % (21.0-51.0); %Monocytes 6.7 % (0.0-10.0); %Neutrophils 82.3 % (42.0-75.0); Hematocrit 27.9 % (36.0-47.0); Hemoglobin 8.9 g/dL (12.0-16.0); Mean Corpuscular HGB CONC 31.9 g/dL (32.0-36.0); Mean Corpuscular Hemoglobin 28.1 pg (27.0-31.0); Mean Platelet Volume 12.3 fL (7.4-10.4); RBC Distribution Width 17.8 % (11.5-14.5); Red Blood Cell (RBC) Count 3.17 mill/uL (4.20-5.40); White Blood Cell (WBC) Count 24.5 10x3/uL (4.8-10.8)
[2023-06-22 04:26] LABS: Anion Gap 15 mmol/L (10-20); BUN (Urea Nitrogen) 36 mg/dL (9.8-20.1); Calc. Creatinine Clearance 89 mL/min (70-130); Calcium 8.3 mg/dL (7.8-10.44); Carbon Dioxide 19 mmol/L (22-29); Chloride 106 mmol/L (98-107); Estimated GFR 63; Glucose 122 mg/dL (70-105); Potassium 4.2 mmol/L (3.5-5.1); Sodium 136 mmol/L (136-145)
[2023-06-22 05:19] LABS: Platelet Count 54 10x3/uL (130-400)
[2023-06-22] MEDS: Furosemide 40 MG (4 mL) VIAL SLOW IVP SCH (09:09)
[2023-06-22] MEDS: HYDROcodone/Acetaminophen 5/325 mg Tablet PO PRN (10:48)
[2023-06-22 14:22] LABS: Actual Bicarbonate (HCO3a) 17.3 mEq/L (22-28); Base Excess (BEa) -6.4 mEq/L (-2.0 to +3.0); CO2 Tension 28.5 mmHg (35.0-45.0); Calcium, Ionized (arterial) 1.14 mmol/L (1.12-1.30); Carboxyhemoglobin (COHb) 0.4 gm% (0.0-3.0); Hematocrit-ABG 30 % (36.0-47.0); Hemoglobin (Hb) 10.1 g/dL (12.0-16.0); O2 Tension (PaO2), arterial 72.2 mmHg (80.0-100.0); Potassium - ABG Lab 4.22 mmol/L (3.70-5.30); pH, Arterial 7.402 (7.35-7.45)
[2023-06-22 14:23] LABS: Puncture Site LBA
[2023-06-22 14:24] LABS: ALV-art Gradient 177.375 mmHg (0-20)
[2023-06-22] MEDS: Acetaminophen 325 MG TAB PO PRN (18:17)
[2023-06-23 05:22] LABS: Delete Auto Diff?? YES; Hematocrit 27.5 % (36.0-47.0); Hemoglobin 8.8 g/dL (12.0-16.0); Manual Diff?? YES; Mean Corpuscular Hemoglobin 28.1 pg (27.0-31.0); Mean Corpuscular Volume 87.9 fl (78.0-98.0); Mean Platelet Volume 12.2 fL (7.4-10.4); Platelet Count 29 10x3/uL (130-400); RBC Distribution Width 17.6 % (11.5-14.5); Red Blood Cell (RBC) Count 3.13 mill/uL (4.20-5.40); White Blood Cell (WBC) Count 23.9 10x3/uL (4.8-10.8)
[2023-06-23 05:52] LABS: Anion Gap 14 mmol/L (10-20); BUN (Urea Nitrogen) 61 mg/dL (9.8-20.1); Calc. Creatinine Clearance 58 mL/min (70-130); Calcium 8.4 mg/dL (7.8-10.44); Carbon Dioxide 20 mmol/L (22-29); Chloride 103 mmol/L (98-107); Estimated GFR 38; Glucose 123 mg/dL (70-105); Potassium 4.2 mmol/L (3.5-5.1); Sodium 133 mmol/L (136-145)
[2023-06-23 05:57] LABS: Band 11 % (5-11); CellaVision Operator ID LAB.CLH1; Hypochromia SLIGHT = 6-15 cells HPF (0-5); Large Platelets 5.8 % (0-5); Lymphocytes 5 % (21-51); Monocytes 6 % (0-10); Neutrophil 79 % (42-75); Nucleated RBC (Manual Ct) 1 % (0); Platelet Adequacy Comment Platelets Decreased; Polychromasia SLIGHT = 2-3 cells HPF (0-2); Total Cell Count 104
[2023-06-23] MEDS: Escitalopram Oxalate 20 mg Tablet PO SCH (08:08)
[2023-06-23] MEDS: Albumin 25% 25 GM (100 mL) BOT IVPB SCH (09:44)
[2023-06-23] MEDS: Sodium Chloride 0.9% 500 ML IV SCH (12:26)
[2023-06-23] MEDS: Lactated Ringer's 1,000 ML IV SCH (12:27)
[2023-06-23 15:44] LABS: Hemoglobin 8.1 g/dL (12.0-16.0); Manual Diff?? YES; Mean Corpuscular HGB CONC 31.2 g/dL (32.0-36.0); Mean Corpuscular Hemoglobin 28.2 pg (27.0-31.0); RBC Distribution Width 17.8 % (11.5-14.5); Red Blood Cell (RBC) Count 2.87 mill/uL (4.20-5.40); White Blood Cell (WBC) Count 23.8 10x3/uL (4.8-10.8)
[2023-06-23 15:45] LABS: Delete Auto Diff?? YES; Mean Corpuscular Volume 90.6 fl (78.0-98.0); Platelet Count 28 10x3/uL (130-400)
[2023-06-23 15:46] LABS: Platelet Count 28 10x3/uL (130-400)
[2023-06-23 15:54] LABS: INR-International Normal Ratio 5.5; Prothrombin Time 50.2 sec (12.0-14.7)
[2023-06-23 16:12] LABS: D-Dimer Test Greater than 20.00 mcg/mL (0.27-0.43)
[2023-06-23 16:16] LABS: Fibrinogen Less than 30 mg/dL (253-463); PTT Greater than 250.0 sec (22.9-36.1)
[2023-06-23 16:20] LABS: Anisocytosis SLIGHT = 6-15 cells HPF (0-5); Band 7 % (5-11); Burr Cells SLIGHT = 2-5 cells HPF (0-1); CellaVision Operator ID LAB.MJL; Eosinophils 1 % (0-10); Helmet Cells SLIGHT = 2-5 cells HPF (0-1); Large Platelets 8.1 % (0-5); Lymphocytes 7 % (21-51); Monocytes 7 % (0-10); Myelocyte 1 % (0-0); Neutrophil 77 % (42-75); Nucleated RBC (Manual Ct) 7 % (0); Ovalocytes SLIGHT = 2-5 cells HPF (0-1); Platelet Adequacy Comment Significant decrease; Poikilocytosis SLIGHT = 6-15 cells HPF (0-5); Polychromasia MODERATE = 3-4 cells HPF (0-2); Total Cell Count 99
[2023-06-23] MEDS: Fondaparinux Sodium 2.5 MG/0.5 ML SYRINGE SC SCH (17:25)
[2023-06-23] MEDS: DOBUTamine 500 mg/250 ml 250 ML ONE (17:46)
[2023-06-23] MEDS ORDERED: Famotidine 20 MG TAB PO SCH (21:00)
[2023-06-24 04:49] LABS: Hematocrit 22.7 % (36.0-47.0); Hemoglobin 7.3 g/dL (12.0-16.0); Manual Diff?? YES; Mean Corpuscular HGB CONC 32.2 g/dL (32.0-36.0); RBC Distribution Width 17.5 % (11.5-14.5); Red Blood Cell (RBC) Count 2.61 mill/uL (4.20-5.40); White Blood Cell (WBC) Count 16.1 10x3/uL (4.8-10.8)
[2023-06-24 04:50] LABS: Platelet Count 26 10x3/uL (130-400)
[2023-06-24 04:51] LABS: Delete Auto Diff?? YES
[2023-06-24 05:08] LABS: Anion Gap 15 mmol/L (10-20); BUN (Urea Nitrogen) 73 mg/dL (9.8-20.1); Calc. Creatinine Clearance 46 mL/min (70-130); Calcium 7.6 mg/dL (7.8-10.44); Carbon Dioxide 20 mmol/L (22-29); Chloride 101 mmol/L (98-107); Estimated GFR 29; Glucose 104 mg/dL (70-105); Potassium 4.3 mmol/L (3.5-5.1); Sodium 132 mmol/L (136-145)
[2023-06-24 06:08] LABS: Anisocytosis SLIGHT = 6-15 cells HPF (0-5); Band 3 % (5-11); CellaVision Operator ID lab.sh2; Hypochromia SLIGHT = 6-15 cells HPF (0-5); Large Platelets 5.9 % (0-5); Lymphocytes 6 % (21-51); Monocytes 8 % (0-10); Neutrophil 83 % (42-75); Nucleated RBC (Manual Ct) 7 % (0); Platelet Adequacy Comment Significant decrease; Polychromasia MODERATE = 3-4 cells HPF (0-2); Smudge Cells 14.7 %; Total Cell Count 102
[2023-06-24] MEDS: DOPamine 400 MG/D5W 250 ML 250 ML IVPB PRN (09:47)
[2023-06-24] MEDS: Fondaparinux Sodium 2.5 MG/0.5 ML SYRINGE SC SCH (09:47)
[2023-06-24 10:10] LABS: Platelet Count 24 10x3/uL (130-400)
[2023-06-24] MEDS: DOBUTamine 500 mg/250 ml 250 ML IVPB SCH (10:17)
[2023-06-24 10:21] LABS: INR-International Normal Ratio 2.6; Prothrombin Time 28.4 sec (12.0-14.7)
[2023-06-24 10:22] LABS: PTT 49.1 sec (22.9-36.1)
[2023-06-24 10:22] LABS: INR-International Normal Ratio 2.6; Prothrombin Time 28.4 sec (12.0-14.7)
[2023-06-24 10:31] LABS: PTT 48.7 sec (22.9-36.1)
[2023-06-24 10:39] LABS: D-Dimer Test Greater than 20.00 mcg/mL (0.27-0.43); Fibrinogen 54 mg/dL (253-463)
[2023-06-24 10:39] LABS: Fibrinogen 53 mg/dL (253-463)
[2023-06-24] MEDS: DOBUTamine 500 mg/250 ml 250 ML ONE (10:41)
[2023-06-24] MEDS ORDERED: Vancomycin Dose by Levels Sliding Scale (Wt 71-99) FS SCH (13:30)
[2023-06-24] MEDS: Vancomycin (BATCH) 1.75 GM in Premix 1 BAG IVPB SCH ×2 (14:10→14:36)
[2023-06-24 14:18] LABS: Platelet Count 35 10x3/uL (130-400)
[2023-06-24] MEDS: Sodium Bicarbonate 70 MEQ in Sodium Chloride 0.45% 1,000 ML IV SCH (14:22)
[2023-06-24 14:25] LABS: INR-International Normal Ratio 2.1; Prothrombin Time 23.5 sec (12.0-14.7)
[2023-06-24 14:25] LABS: Hematocrit 23.2 % (36.0-47.0); Hemoglobin 7.6 g/dL (12.0-16.0); Mean Corpuscular HGB CONC 32.8 g/dL (32.0-36.0); Mean Corpuscular Hemoglobin 28.6 pg (27.0-31.0); Mean Corpuscular Volume 87.2 fl (78.0-98.0); RBC Distribution Width 17.2 % (11.5-14.5); Red Blood Cell (RBC) Count 2.66 mill/uL (4.20-5.40); White Blood Cell (WBC) Count 18.5 10x3/uL (4.8-10.8)
[2023-06-24 14:26] LABS: Platelet Count 35 10x3/uL (130-400)
[2023-06-24 14:26] LABS: PTT 41.3 sec (22.9-36.1)
[2023-06-24 14:31] LABS: Fibrinogen 108 mg/dL (253-463)
[2023-06-24 14:44] LABS: D-Dimer Test Greater than 20.00 mcg/mL (0.27-0.43)
[2023-06-24] MEDS: LevoFLOXacin 750 mg/D5W 750 MG in Premix 1 BAG IVPB SCH ×2 (15:12→16:02)
[2023-06-24 17:02] LABS: Hematocrit 23.2 % (36.0-47.0); Hemoglobin 7.5 g/dL (12.0-16.0); Manual Diff?? YES; Mean Corpuscular HGB CONC 32.3 g/dL (32.0-36.0); Mean Corpuscular Hemoglobin 28.6 pg (27.0-31.0); Mean Corpuscular Volume 88.5 fl (78.0-98.0); RBC Distribution Width 17.5 % (11.5-14.5); Red Blood Cell (RBC) Count 2.62 mill/uL (4.20-5.40); White Blood Cell (WBC) Count 18.1 10x3/uL (4.8-10.8)
[2023-06-24 17:06] LABS: Delete Auto Diff?? YES; Platelet Count 37 10x3/uL (130-400)
[2023-06-24 17:29] LABS: Anisocytosis SLIGHT = 6-15 cells HPF (0-5); Band 7 % (5-11); CellaVision Operator ID LAB.MJL; Helmet Cells SLIGHT = 2-5 cells HPF (0-1); Lymphocytes 13 % (21-51); Monocytes 7 % (0-10); Neutrophil 72 % (42-75); Nucleated RBC (Manual Ct) 14 % (0); Ovalocytes SLIGHT = 2-5 cells HPF (0-1); Platelet Adequacy Comment Platelets Decreased; Poikilocytosis SLIGHT = 6-15 cells HPF (0-5); Polychromasia MODERATE = 3-4 cells HPF (0-2); Reactive Lymphocytes 1 % (0-10); Total Cell Count 100
[2023-06-24] MEDS: fentaNYL 50 mcg/mL 1 mL Vial SLOW IVP PRN (17:30)
[2023-06-25] MEDS: Bisacodyl 5 MG TAB PO PRN (02:10)
[2023-06-25 04:03] LABS: #Basophils 0.1 thou/uL (0.0-0.2); #Eosinphils 0.1 thou/uL (0.0-0.7); #Monocytes 1.8 thou/uL (0.11-0.59); #Neutrophils 16.1 thou/uL (1.40-6.50); %Basophils 0.2 % (0.0-1.0); %Eosinophils 0.3 % (0.0-10.0); %Lymphocytes 10.2 % (21.0-51.0); %Monocytes 8.6 % (0.0-10.0); %Neutrophils 77.2 % (42.0-75.0); Hematocrit 23.6 % (36.0-47.0); Hemoglobin 7.8 g/dL (12.0-16.0); Manual Diff?? YES; Mean Corpuscular HGB CONC 33.1 g/dL (32.0-36.0); Mean Corpuscular Hemoglobin 28.3 pg (27.0-31.0); RBC Distribution Width 17.8 % (11.5-14.5); Red Blood Cell (RBC) Count 2.76 mill/uL (4.20-5.40); White Blood Cell (WBC) Count 20.9 10x3/uL (4.8-10.8)
[2023-06-25 04:24] LABS: Mean Corpuscular Volume 85.5 fl (78.0-98.0); Platelet Count 44 10x3/uL (130-400)
[2023-06-25 04:25] LABS: Platelet Count 33 10x3/uL (130-400)
[2023-06-25 04:30] LABS: INR-International Normal Ratio 2.2; Prothrombin Time 24.8 sec (12.0-14.7)
[2023-06-25 04:31] LABS: PTT 43.6 sec (22.9-36.1)
[2023-06-25 04:36] LABS: Fibrinogen 118 mg/dL (253-463)
[2023-06-25] MEDS: fentaNYL 50 mcg/mL 1 mL Vial SLOW IVP SCH (04:36)
[2023-06-25 04:49] LABS: D-Dimer Test Greater than 20.00 mcg/mL (0.27-0.43)
[2023-06-25 05:01] LABS: Chloride 100 mmol/L (98-107); Potassium 4.4 mmol/L (3.5-5.1); Sodium 128 mmol/L (136-145)
[2023-06-25 05:02] LABS: Calcium 7.6 mg/dL (7.8-10.44); Glucose 111 mg/dL (70-105)
[2023-06-25 05:04] LABS: Anion Gap 13 mmol/L (10-20); Carbon Dioxide 19 mmol/L (22-29)
[2023-06-25 05:05] LABS: Calc. Creatinine Clearance 53 mL/min (70-130); Estimated GFR 34
[2023-06-25 05:06] LABS: BUN (Urea Nitrogen) 71 mg/dL (9.8-20.1)
[2023-06-25 05:17] LABS: Band 12 % (5-11); CellaVision Operator ID LAB.CLH1; Hypochromia SLIGHT = 6-15 cells HPF (0-5); Large Platelets 6.8 % (0-5); Lymphocytes 3 % (21-51); Metamyelocyte 1 % (0-0); Monocytes 10 % (0-10); Neutrophil 75 % (42-75); Nucleated RBC (Manual Ct) 22 % (0); Platelet Adequacy Comment Platelets Decreased; Polychromasia SLIGHT = 2-3 cells HPF (0-2); Total Cell Count 103
[2023-06-25 06:16] LABS: CK (CPK) 8071 U/L (29-168)
[2023-06-25] MEDS: DOBUTamine 500 mg/250 ml 250 ML ONE (09:38)
[2023-06-25] MEDS: Sodium Bicarbonate 140 MEQ in Dextrose 5% in Water 1,000 ML IV SCH (09:45)
[2023-06-25] MEDS: Fondaparinux Sodium 2.5 MG/0.5 ML SYRINGE SC SCH (12:17)
[2023-06-25] MEDS: Amiodarone 200 MG TAB PO SCH ×2 (12:17→15:11)
[2023-06-25 15:48] LABS: Vancomycin, Random 11.3 ug/mL (See Comment)
[2023-06-25] MEDS: Vancomycin HCl 750 MG in Sodium Chloride 0.9% 250 ML 250 ML IVPB SCH (16:06)
[2023-06-25 16:13] LABS: Heparin-Induced Ab (HITA) 0.5 OD (0.000-0.400)
[2023-06-26 04:12] LABS: Hemoglobin 7.4 g/dL (12.0-16.0); Manual Diff?? YES; Mean Corpuscular HGB CONC 32.2 g/dL (32.0-36.0); Mean Corpuscular Volume 87.1 fl (78.0-98.0); RBC Distribution Width 18.1 % (11.5-14.5); Red Blood Cell (RBC) Count 2.64 mill/uL (4.20-5.40)
[2023-06-26 04:24] LABS: Platelet Count 60 10x3/uL (130-400)
[2023-06-26 04:25] LABS: Delete Auto Diff?? YES; Platelet Count 58 10x3/uL (130-400)
[2023-06-26 04:29] LABS: INR-International Normal Ratio 2.3; Prothrombin Time 25.6 sec (12.0-14.7)
[2023-06-26 04:30] LABS: PTT 47.8 sec (22.9-36.1)
[2023-06-26 04:32] LABS: Anion Gap 12 mmol/L (10-20); BUN (Urea Nitrogen) 56 mg/dL (9.8-20.1); Calc. Creatinine Clearance 87 mL/min (70-130); Calcium 7.6 mg/dL (7.8-10.44); Carbon Dioxide 26 mmol/L (22-29); Chloride 98 mmol/L (98-107); Estimated GFR 58; Glucose 119 mg/dL (70-105); Potassium 3.7 mmol/L (3.5-5.1); Sodium 132 mmol/L (136-145)
[2023-06-26 04:35] LABS: Fibrinogen 130 mg/dL (253-463)
[2023-06-26 04:58] LABS: D-Dimer Test Greater than 20.00 mcg/mL (0.27-0.43)
[2023-06-26 05:01] LABS: CK (CPK) 8491 U/L (29-168)
[2023-06-26 05:18] LABS: Anisocytosis MODERATE=16-30 cells HPF (0-5); CellaVision Operator ID lab.sh2; Eosinophils 1 % (0-10); Large Platelets 7.1 % (0-5); Lymphocytes 6 % (21-51); Monocytes 8 % (0-10); Neutrophil 85 % (42-75); Nucleated RBC (Manual Ct) 13 % (0); Platelet Adequacy Comment Platelets Decreased; Polychromasia MODERATE = 3-4 cells HPF (0-2); Smudge Cells 22.6 %; Total Cell Count 84
[2023-06-26] MEDS ORDERED: Morphine 4 MG/ML VIAL SLOW IVP PRN (08:14)
[2023-06-26] MEDS ORDERED: fentaNYL 75 mcg/hour Patch TD SCH (08:15)
[2023-06-26] MEDS: fentaNYL 75 mcg/hour Patch TD SCH (08:29)
[2023-06-26] MEDS: Morphine 4 MG/ML VIAL SLOW IVP PRN (08:30)
[2023-06-26 11:04] VITALS: BP 108/95
[2023-06-26] MEDS: Fondaparinux Sodium 2.5 MG/0.5 ML SYRINGE SC SCH (12:05)
[2023-06-26] MEDS: Nitroglycerin 2% Ointment 1 INCH/1 GM Packet TOP SCH (13:13)
[2023-06-26] MEDS: ALPROSTADIL IV SCH (16:00)
[2023-06-26] MEDS: SODIUM CHLORIDE 0.9% IV SCH (16:00)
[2023-06-26] MEDS: LevoFLOXacin 750 mg/D5W 750 MG in Premix 1 BAG IVPB SCH (16:37)
[2023-06-26 19:20] LABS: Vancomycin, Random 6.5 ug/mL (See Comment)
[2023-06-26] MEDS: Vancomycin (BATCH) 1.75 GM in Premix 1 BAG IVPB SCH (20:46)
[2023-06-26] MEDS ORDERED: Nitroglycerin 2% Ointment 1 INCH/1 GM Packet TOP SCH (21:00)
[2023-06-27 04:27] LABS: Hematocrit 22.8 % (36.0-47.0); Hemoglobin 7.1 g/dL (12.0-16.0); Manual Diff?? YES; Mean Corpuscular HGB CONC 31.1 g/dL (32.0-36.0); Mean Corpuscular Hemoglobin 27.8 pg (27.0-31.0); Mean Corpuscular Volume 89.4 fl (78.0-98.0); Mean Platelet Volume 11.9 fL (7.4-10.4); Platelet Count 90 10x3/uL (130-400); RBC Distribution Width 19.3 % (11.5-14.5); Red Blood Cell (RBC) Count 2.55 mill/uL (4.20-5.40); White Blood Cell (WBC) Count 24.1 10x3/uL (4.8-10.8)
[2023-06-27 04:28] LABS: Delete Auto Diff?? YES; Platelet Count 89 10x3/uL (130-400)
[2023-06-27 04:50] LABS: Anion Gap 11 mmol/L (10-20); BUN (Urea Nitrogen) 33 mg/dL (9.8-20.1); Calc. Creatinine Clearance 124 mL/min (70-130); Calcium 7.9 mg/dL (7.8-10.44); Carbon Dioxide 31 mmol/L (22-29); Chloride 97 mmol/L (98-107); Estimated GFR 88; Glucose 126 mg/dL (70-105); Potassium 3.7 mmol/L (3.5-5.1); Sodium 135 mmol/L (136-145)
[2023-06-27 04:51] LABS: ALT (SGPT) 592 U/L (8-55); AST (SGOT) 231 U/L (5-34); Albumin 2.9 g/dL (3.5-5.0); Alkaline Phosphatase 332 U/L (40-110); Bilirubin, Direct 1.3 mg/dL (0.1-0.3); Bilirubin, Total 1.8 mg/dL (0.2-1.2); Fibrinogen 176 mg/dL (253-463); Protein, Total 5.1 g/dL (6.0-8.3)
[2023-06-27 04:53] LABS: INR-International Normal Ratio 2.6; PTT 50.1 sec (22.9-36.1); Prothrombin Time 27.9 sec (12.0-14.7)
[2023-06-27 05:04] LABS: CK (CPK) 7184 U/L (29-168)
[2023-06-27 05:11] LABS: D-Dimer Test Greater than 20.00 mcg/mL (0.27-0.43)
[2023-06-27 06:00] LABS: Band 8 % (5-11); CellaVision Operator ID LAB.CLH1; Hypochromia SLIGHT = 6-15 cells HPF (0-5); Lymphocytes 1 % (21-51); Monocytes 5 % (0-10); Myelocyte 2 % (0-0); Neutrophil 83 % (42-75); Nucleated RBC (Manual Ct) 5 % (0); Platelet Adequacy Comment Platelets Decreased; Polychromasia SLIGHT = 2-3 cells HPF (0-2); Total Cell Count 100
[2023-06-27 12:18] LABS: Vancomycin, Random 15.2 ug/mL (See Comment)
[2023-06-27 12:22] LABS: Actual Bicarbonate (HCO3a) 18.3 mEq/L (22-28); Analyzer IN Cardio OR; Base Excess (BEa) -9.8 mEq/L (-2.0 to +3.0); CO2 Tension 49.7 mmHg (35.0-45.0); Carboxyhemoglobin (COHb) 0.5 gm% (0.0-3.0); Hematocrit-ABG 32 % (36.0-47.0); O2 Tension (PaO2), arterial 91.4 mmHg (80.0-100.0); Potassium - ABG Lab 3.84 mmol/L (3.70-5.30)
[2023-06-27 12:22] LABS: Actual Bicarbonate (HCO3a) 20.1 mEq/L (22-28); Analyzer IN Cardio OR; Base Excess (BEa) -6.5 mEq/L (-2.0 to +3.0); CO2 Tension 45.6 mmHg (35.0-45.0); Calcium, Ionized (arterial) 1.11 mmol/L (1.12-1.30); Carboxyhemoglobin (COHb) 0.8 gm% (0.0-3.0); Hematocrit-ABG 23 % (36.0-47.0); Hemoglobin (Hb) 7.8 g/dL (12.0-16.0); O2 Tension (PaO2), arterial 451.9 mmHg (80.0-100.0); Potassium - ABG Lab 4.09 mmol/L (3.70-5.30); pH, Arterial 7.263 (7.35-7.45)
[2023-06-27 12:22] LABS: Actual Bicarbonate (HCO3v) 20.6 mEq/L (22-28); Analyzer IN Cardio OR; Calcium, Ionized (venous) 1.12 mmol/L (1.16-1.32); Chloride (VBG) 114 mmol/L (98-106); Hematocrit-VBG 24 % (36.0-47.0); Hemoglobin (Hb) 8.1 g/dL (11.7-16.0); Potassium (VBG) 4.03 mmol/L (3.70-5.30); Sodium 140 mmol/L (133-146); pH (venous) 7.212 (7.32-7.43)
[2023-06-27 12:22] LABS: Actual Bicarbonate (HCO3a) 18.3 mEq/L (22-28); Analyzer IN Cardio OR; CO2 Tension 44.9 mmHg (35.0-45.0); Calcium, Ionized (arterial) 1.11 mmol/L (1.12-1.30); Carboxyhemoglobin (COHb) 0.7 gm% (0.0-3.0); Hematocrit-ABG 34 % (36.0-47.0); Hemoglobin (Hb) 11.7 g/dL (12.0-16.0); O2 Tension (PaO2), arterial 133.2 mmHg (80.0-100.0); Potassium - ABG Lab 3.76 mmol/L (3.70-5.30); pH, Arterial 7.228 (7.35-7.45)
[2023-06-27 12:23] LABS: Puncture Site Arterial Line
[2023-06-27 12:23] LABS: Actual Bicarbonate (HCO3a) 18.5 mEq/L (22-28); Analyzer IN Cardio OR; Base Excess (BEa) -8.9 mEq/L (-2.0 to +3.0); CO2 Tension 46.5 mmHg (35.0-45.0); Calcium, Ionized (arterial) 1.18 mmol/L (1.12-1.30); Carboxyhemoglobin (COHb) 0.6 gm% (0.0-3.0); Hematocrit-ABG 32 % (36.0-47.0); O2 Tension (PaO2), arterial 94.9 mmHg (80.0-100.0); Potassium - ABG Lab 3.77 mmol/L (3.70-5.30); pH, Arterial 7.218 (7.35-7.45)
[2023-06-27 12:23] LABS: Actual Bicarbonate (HCO3a) 18.9 mEq/L (22-28); Analyzer IN Cardio OR; Base Excess (BEa) -7.8 mEq/L (-2.0 to +3.0); CO2 Tension 44.1 mmHg (35.0-45.0); Calcium, Ionized (arterial) 1.12 mmol/L (1.12-1.30); Carboxyhemoglobin (COHb) 0.7 gm% (0.0-3.0); Hematocrit-ABG 24 % (36.0-47.0); Hemoglobin (Hb) 8.2 g/dL (12.0-16.0); O2 Tension (PaO2), arterial 375.6 mmHg (80.0-100.0); Potassium - ABG Lab 4.53 mmol/L (3.70-5.30)
[2023-06-27 12:26] LABS: Puncture Site Arterial Line; pH, Arterial 7.183 (7.35-7.45)
[2023-06-27 12:26] LABS: Puncture Site Arterial Line
[2023-06-27 12:27] LABS: Puncture Site Arterial Line
[2023-06-27 12:27] LABS: Puncture Site Arterial Line
[2023-06-27] MEDS: Vancomycin 1 GM in Premix 1 BAG IVPB SCH (13:58)
[2023-06-27] MEDS: Fondaparinux Sodium 2.5 MG/0.5 ML SYRINGE SC SCH (14:02)
[2023-06-28] MEDS: Digoxin 0.5 MG/2 ML AMP SLOW IVP SCH (00:05)
[2023-06-28] MEDS: Metoprolol Tartrate 5 MG (5 mL) VIAL IVP SCH (01:20)
[2023-06-28 04:20] LABS: Platelet Count 110 10x3/uL (130-400)
[2023-06-28 04:21] LABS: Hematocrit 21.8 % (36.0-47.0); Hemoglobin 6.7 g/dL (12.0-16.0); Manual Diff?? YES; Mean Corpuscular HGB CONC 30.7 g/dL (32.0-36.0); Mean Corpuscular Hemoglobin 28.3 pg (27.0-31.0); Mean Platelet Volume 11.6 fL (7.4-10.4); Platelet Count 119 10x3/uL (130-400); RBC Distribution Width 20.4 % (11.5-14.5); Red Blood Cell (RBC) Count 2.37 mill/uL (4.20-5.40); White Blood Cell (WBC) Count 28.6 10x3/uL (4.8-10.8)
[2023-06-28 04:26] LABS: Delete Auto Diff?? YES
[2023-06-28 04:31] LABS: Fibrinogen 238 mg/dL (253-463); INR-International Normal Ratio 2.2; Prothrombin Time 24.9 sec (12.0-14.7)
[2023-06-28 04:32] LABS: PTT 52.5 sec (22.9-36.1)
[2023-06-28 04:43] LABS: Anion Gap 12 mmol/L (10-20); BUN (Urea Nitrogen) 29 mg/dL (9.8-20.1); Calc. Creatinine Clearance 125 mL/min (70-130); Calcium 8.1 mg/dL (7.8-10.44); Carbon Dioxide 31 mmol/L (22-29); Chloride 96 mmol/L (98-107); Estimated GFR 83; Glucose 117 mg/dL (70-105); Potassium 3.8 mmol/L (3.5-5.1); Sodium 135 mmol/L (136-145)
[2023-06-28 05:07] LABS: D-Dimer Test Greater than 20.00 mcg/mL (0.27-0.43)
[2023-06-28 05:31] LABS: Anisocytosis MODERATE=16-30 cells HPF (0-5); Band 1 % (5-11); CellaVision Operator ID lab.sh2; Hypochromia SLIGHT = 6-15 cells HPF (0-5); Large Platelets 0.9 % (0-5); Lymphocytes 9 % (21-51); Macrocytosis SLIGHT = 6-15 cells HPF (0-5); Monocytes 5 % (0-10); Neutrophil 86 % (42-75); Nucleated RBC (Manual Ct) 4 % (0); Platelet Adequacy Comment Platelets Decreased; Polychromasia MODERATE = 3-4 cells HPF (0-2); Smudge Cells 9.4 %; Stomatocytes SLIGHT = 2-5 cells HPF (0-1); Total Cell Count 117
[2023-06-28] MEDS: Amiodarone 450 MG, Admixture Fee 1 EACH in Dextrose 5% in Water 250 ML IVPB SCH (05:33)
[2023-06-28 06:00] LABS: CK (CPK) 5527 U/L (29-168)
[2023-06-28] MEDS ORDERED: Aquaphor 10 GM TUBE TOP PRN (07:50)
[2023-06-28] MEDS: Furosemide 40 MG (4 mL) VIAL SLOW IVP SCH ×2 (08:17→17:26)
[2023-06-28] MEDS: Aspirin 81 mg Enteric Coated Tablet PO SCH (08:17)
[2023-06-28] MEDS: Gabapentin 300 MG CAP PO SCH ×2 (11:43→15:01)
[2023-06-28] MEDS: Cefepime 2 GM in Sodium Chloride 0.9% 100 ML IVPB SCH (11:44)
[2023-06-28] MEDS: Clindamycin/D5W 900 MG in Premix 1 BAG IVPB SCH (11:44)
[2023-06-28] MEDS: fentaNYL 100 mcg/hour Patch TD SCH (12:42)
[2023-06-28 16:01] LABS: Reference Lab Name LABCORP
[2023-06-29] MEDS: Morphine 2 MG/ML VIAL SLOW IVP SCH (01:07)
[2023-06-29 03:46] LABS: Hemoglobin 7.9 g/dL (12.0-16.0); Manual Diff?? YES; Mean Corpuscular HGB CONC 31.6 g/dL (32.0-36.0); Mean Corpuscular Hemoglobin 28.4 pg (27.0-31.0); Mean Corpuscular Volume 89.9 fl (78.0-98.0); Mean Platelet Volume 11.3 fL (7.4-10.4); Platelet Count 143 10x3/uL (130-400); Platelet Count 146 10x3/uL (130-400); Red Blood Cell (RBC) Count 2.78 mill/uL (4.20-5.40); White Blood Cell (WBC) Count 35.2 10x3/uL (4.8-10.8)
[2023-06-29 03:53] LABS: Delete Auto Diff?? YES
[2023-06-29 04:08] LABS: ALT (SGPT) 313 U/L (8-55); AST (SGOT) 99 U/L (5-34); Albumin 2.9 g/dL (3.5-5.0); Alkaline Phosphatase 273 U/L (40-110); Bilirubin, Direct 1.4 mg/dL (0.1-0.3); Bilirubin, Total 2.2 mg/dL (0.2-1.2); Protein, Total 5.3 g/dL (6.0-8.3)
[2023-06-29 04:13] LABS: Anion Gap 13 mmol/L (10-20); BUN (Urea Nitrogen) 34 mg/dL (9.8-20.1); Calc. Creatinine Clearance 92 mL/min (70-130); Calcium 8.2 mg/dL (7.8-10.44); Carbon Dioxide 29 mmol/L (22-29); Chloride 94 mmol/L (98-107); Estimated GFR 58; Glucose 110 mg/dL (70-105); Potassium 4.4 mmol/L (3.5-5.1); Sodium 132 mmol/L (136-145)
[2023-06-29 04:24] LABS: Band 1 % (5-11); CellaVision Operator ID LAB.CLH1; Hypochromia SLIGHT = 6-15 cells HPF (0-5); Lymphocytes 6 % (21-51); Macrocytosis SLIGHT = 6-15 cells HPF (0-5); Monocytes 10 % (0-10); Neutrophil 83 % (42-75); Nucleated RBC (Manual Ct) 2 % (0); Platelet Adequacy Comment Platelets Normal; Polychromasia SLIGHT = 2-3 cells HPF (0-2); Total Cell Count 101
[2023-06-29 04:25] LABS: Fibrinogen 308 mg/dL (253-463)
[2023-06-29 04:27] LABS: INR-International Normal Ratio 2.3; PTT 49.7 sec (22.9-36.1); Prothrombin Time 25.8 sec (12.0-14.7)
[2023-06-29 04:56] LABS: D-Dimer Test Greater than 20.00 mcg/mL (0.27-0.43)
[2023-06-29] MEDS: Furosemide 40 MG (4 mL) VIAL SLOW IVP SCH (05:09)
[2023-06-29] MEDS ORDERED: Benzonatate 100 MG CAP PO PRN (06:45)
[2023-06-29] MEDS: Benzonatate 100 MG CAP PO SCH (08:50)
[2023-06-29] MEDS ORDERED: Vancomycin 1 GM in Premix 1 BAG IVPB SCH (11:45)
[2023-06-29] MEDS: Cefepime 1 GM in Sodium Chloride 0.9% 100 ML IVPB SCH (11:50)
[2023-06-29] MEDS: Furosemide 100 MG (10 mL) VIAL SLOW IVP SCH (11:51)
[2023-06-29 13:18] LABS: Vancomycin, Trough 25.8 ug/mL
[2023-06-29] MEDS: Metolazone 5 MG TAB PO SCH (17:04)
[2023-06-30] MEDS: Lorazepam 2 MG/ML VIAL SLOW IVP PRN (00:19)
[2023-06-30] MEDS: Vancomycin HCl 750 MG in Sodium Chloride 0.9% 250 ML 250 ML IVPB SCH (01:05)
[2023-06-30] MEDS: Digoxin 0.5 MG/2 ML AMP SLOW IVP SCH ×3 (01:45→14:19)
[2023-06-30 02:54] LABS: Hematocrit 24.1 % (36.0-47.0); Hemoglobin 7.6 g/dL (12.0-16.0); Manual Diff?? YES; Mean Corpuscular HGB CONC 31.5 g/dL (32.0-36.0); Mean Corpuscular Hemoglobin 28.4 pg (27.0-31.0); Mean Corpuscular Volume 89.9 fl (78.0-98.0); Mean Platelet Volume 10.8 fL (7.4-10.4); Platelet Count 153 10x3/uL (130-400); RBC Distribution Width 19.8 % (11.5-14.5); Red Blood Cell (RBC) Count 2.68 mill/uL (4.20-5.40); White Blood Cell (WBC) Count 37.4 10x3/uL (4.8-10.8)
[2023-06-30 02:59] LABS: Delete Auto Diff?? YES
[2023-06-30 03:00] LABS: Platelet Count 153 10x3/uL (130-400)
[2023-06-30 03:07] LABS: Fibrinogen 326 mg/dL (253-463)
[2023-06-30] MEDS: Metoprolol Tartrate 5 MG (5 mL) VIAL IVP SCH (03:07)
[2023-06-30 03:08] LABS: INR-International Normal Ratio 2.3; Prothrombin Time 25.1 sec (12.0-14.7)
[2023-06-30 03:09] LABS: PTT 49.9 sec (22.9-36.1)
[2023-06-30 03:24] LABS: D-Dimer Test Greater than 20.00 mcg/mL (0.27-0.43)
[2023-06-30 03:26] LABS: Band 2 % (5-11); CellaVision Operator ID lab.abc; Hypochromia SLIGHT = 6-15 cells HPF (0-5); Lymphocytes 6 % (21-51); Monocytes 8 % (0-10); Myelocyte 1 % (0-0); Neutrophil 83 % (42-75); Nucleated RBC (Manual Ct) 1 % (0); Platelet Adequacy Comment Platelets Normal; Polychromasia SLIGHT = 2-3 cells HPF (0-2); Smudge Cells 5.9 %; Total Cell Count 102
[2023-06-30 03:42] LABS: Anion Gap 14 mmol/L (10-20); BUN (Urea Nitrogen) 40 mg/dL (9.8-20.1); Calc. Creatinine Clearance 84 mL/min (70-130); Calcium 7.8 mg/dL (7.8-10.44); Carbon Dioxide 28 mmol/L (22-29); Chloride 94 mmol/L (98-107); Estimated GFR 51; Glucose 105 mg/dL (70-105); Sodium 132 mmol/L (136-145)
[2023-06-30 03:45] LABS: ALT (SGPT) 237 U/L (8-55); AST (SGOT) 84 U/L (5-34); Albumin 2.8 g/dL (3.5-5.0); Alkaline Phosphatase 277 U/L (40-110); Bilirubin, Direct 1.6 mg/dL (0.1-0.3); Protein, Total 5.4 g/dL (6.0-8.3)
[2023-06-30] MEDS: Lactated Ringer's 1,000 ML IV SCH (07:08)
[2023-06-30] MEDS ORDERED: HYDROmorphone 0.5 MG/0.5 ML SYRINGE SLOW IVP SCH (08:45)
[2023-06-30 09:53] VITALS: BMI 42.3
[2023-06-30 12:11] VITALS: TEMP 97.9
[2023-07-01] MEDS ORDERED: Digoxin 0.5 MG/2 ML AMP SLOW IVP SCH (09:00)
== END 2023-06-30 15:05 | disposition hospice, inpatient (51) | DRG 233 ==
LOC: ERS 16:23 → ERHOLD 19:48 → CCU 06-16 11:08
PROVIDERS: ADMIT Internal Medicine; ATTEND Family Medicine
PROC: 4A023N7 Measurement of Cardiac Sampling and Pressure, Left Heart, Percutaneous Approach (ICD-10-PCS; principal; 2023-06-16)
PROC: B2151ZZ Fluoroscopy of Left Heart using Low Osmolar Contrast (ICD-10-PCS; 2023-06-16)
PROC: B2111ZZ Fluoroscopy of Multiple Coronary Arteries using Low Osmolar Contrast (ICD-10-PCS; 2023-06-16)
PROC: 3E033XZ Introduction of Vasopressor into Peripheral Vein, Percutaneous Approach (ICD-10-PCS; 2023-06-16)
PROC: 06H03DZ Insertion of Intraluminal Device into Inferior Vena Cava, Percutaneous Approach (ICD-10-PCS; 2023-06-18)
PROC: 02100A9 Bypass Coronary Artery, One Artery from Left Internal Mammary with Autologous Arterial Tissue, Open Approach (ICD-10-PCS; 2023-06-19)
PROC: 021209W Bypass Coronary Artery, Three Arteries from Aorta with Autologous Venous Tissue, Open Approach (ICD-10-PCS; 2023-06-19)
PROC: 06BQ4ZZ Excision of Left Saphenous Vein, Percutaneous Endoscopic Approach (ICD-10-PCS; 2023-06-19)
PROC: 02L70CK Occlusion of Left Atrial Appendage with Extraluminal Device, Open Approach (ICD-10-PCS; 2023-06-19)
PROC: 5A1221Z Performance of Cardiac Output, Continuous (ICD-10-PCS; 2023-06-19)
PROC: 30233N1 Transfusion of Nonautologous Red Blood Cells into Peripheral Vein, Percutaneous Approach (ICD-10-PCS; 2023-06-19)
PROC: 4A133R1 Monitoring of Arterial Saturation, Peripheral, Percutaneous Approach (ICD-10-PCS; 2023-06-19)
PROC: 30233J1 Transfusion of Nonautologous Serum Albumin into Peripheral Vein, Percutaneous Approach (ICD-10-PCS; 2023-06-19)
PROC: 5A1935Z Respiratory Ventilation, Less than 24 Consecutive Hours (ICD-10-PCS; 2023-06-19)
PROC: 0BH17EZ Insertion of Endotracheal Airway into Trachea, Via Natural or Artificial Opening (ICD-10-PCS; 2023-06-19)
PROC: 5A09457 Assistance with Respiratory Ventilation, 24-96 Consecutive Hours, Continuous Positive Airway Pressure (ICD-10-PCS; 2023-06-21)
PROC: 5A0945A Assistance with Respiratory Ventilation, 24-96 Consecutive Hours, High Flow/Velocity Cannula (ICD-10-PCS; 2023-06-23)
PROC: 6A550Z3 Pheresis of Plasma, Single (ICD-10-PCS; 2023-06-24)
DX: I21.4 Non-ST elevation (NSTEMI) myocardial infarction (principal); I26.93 Single subsegmental thrombotic pulmonary embolism without acute cor pulmonale; I50.23 Acute on chronic systolic (congestive) heart failure; I26.99 Other pulmonary embolism without acute cor pulmonale; K68.3 Retroperitoneal hematoma; I96 Gangrene, not elsewhere classified; M62.82 Rhabdomyolysis; I82.402 Acute embolism and thrombosis of unspecified deep veins of left lower extremity; I11.0 Hypertensive heart disease with heart failure; I25.10 Atherosclerotic heart disease of native coronary artery without angina pectoris; E78.5 Hyperlipidemia, unspecified; F32.A Depression, unspecified; R91.8 Other nonspecific abnormal finding of lung field; G43.909 Migraine, unspecified, not intractable, without status migrainosus; S30.1XXA Contusion of abdominal wall, initial encounter; M54.50 Low back pain, unspecified; E78.1 Pure hyperglyceridemia; F39 Unspecified mood [affective] disorder; I48.91 Unspecified atrial fibrillation; D75.829 Heparin-induced thrombocytopenia, unspecified; E78.00 Pure hypercholesterolemia, unspecified; Z95.818 Presence of other cardiac implants and grafts; Z90.710 Acquired absence of both cervix and uterus; Z90.49 Acquired absence of other specified parts of digestive tract; Z98.51 Tubal ligation status; Z80.9 Family history of malignant neoplasm, unspecified; Z82.49 Family history of ischemic heart disease and other diseases of the circulatory system; Z87.891 Personal history of nicotine dependence; Z79.82 Long term (current) use of aspirin; Z79.899 Other long term (current) drug therapy; Z11.52 Encounter for screening for COVID-19; Z86.718 Personal history of other venous thrombosis and embolism; Z91.148 Patient's other noncompliance with medication regimen for other reason
CPT/HCPCS: 36415; 36416; 36430; 36600; 37191; 70450; 71045; 71275; 74176; 74177; 80048; 80053; 80061; 80076; 80202; 82550; 82805; 82947; 83036; 83605; 83735; 83880; 84484; 85025; 85049; 85300; 85347; 85362; 85384; 85610; 85730; 86850; 86900; 86901; 87040; 87449; 87899; 93005; 93010; 93306; 93458; 93459; 93798; 93970; 94002; 94003; 94660; 96374; 96375; 97139; 99152; 99153; A4311; C1751; C1769; C1880; C1894; J0171; J0270; J0282; J0692; J0696; J1100; J1160; J1250; J1265; J1644; J1650; J1652; J1815; J1885; J1940; J1956; J2001; J2060; J2150; J2250; J2260; J2270; J2272; J2405; J2440; J2704; J2720; J3010; J3370; J3370-JW; J3475; J3480; J3490; J7030; J7050; J7070; J7120; P9016; P9045; P9047; P9059; Q9967; S0017; S0028

== ENCOUNTER 2023-06-30 15:14 | Inpatient (IN) | payer OTHER ==
[2023-06-30 15:23] VITALS: BMI 32.0
[2023-06-30 15:43] VITALS: BP 106/58
[2023-06-30] MEDS ORDERED: Ondansetron PF 4 MG/2 ML Vial IVP PRN (15:51)
[2023-06-30] MEDS ORDERED: Bisacodyl 10 MG SUPP PR PRN (15:54)
[2023-06-30] MEDS: Morphine 4 MG/ML VIAL SLOW IVP PRN (16:05)
[2023-06-30] MEDS: Scopolamine 1 mg/72 hour Patch TOP SCH (16:12)
[2023-06-30] MEDS: fentaNYL 100 mcg/hour Patch TD SCH (19:56)
[2023-06-30] MEDS: Lorazepam 2 MG/ML VIAL SLOW IVP PRN (20:13)
[2023-06-30 20:14] VITALS: TEMP 98.2
[2023-07-01] MEDS ORDERED: fentaNYL 100 mcg/hour Patch TD SCH (13:00)
== END 2023-07-01 12:50 | disposition expired | DRG 951 ==
LOC: CCU 15:16 → T4-A 18:49
PROVIDERS: ADMIT Family Medicine; ATTEND Family Medicine
DX: Z51.5 Encounter for palliative care (principal); I21.4 Non-ST elevation (NSTEMI) myocardial infarction; I26.99 Other pulmonary embolism without acute cor pulmonale; I50.33 Acute on chronic diastolic (congestive) heart failure; I25.10 Atherosclerotic heart disease of native coronary artery without angina pectoris; I11.0 Hypertensive heart disease with heart failure; E78.5 Hyperlipidemia, unspecified; R91.8 Other nonspecific abnormal finding of lung field; G43.909 Migraine, unspecified, not intractable, without status migrainosus; Z79.82 Long term (current) use of aspirin; Z79.899 Other long term (current) drug therapy; Z90.710 Acquired absence of both cervix and uterus; Z90.49 Acquired absence of other specified parts of digestive tract; Z98.890 Other specified postprocedural states; Z98.51 Tubal ligation status; Z82.49 Family history of ischemic heart disease and other diseases of the circulatory system; Z80.9 Family history of malignant neoplasm, unspecified; Z87.891 Personal history of nicotine dependence; Z11.52 Encounter for screening for COVID-19; Z86.718 Personal history of other venous thrombosis and embolism
CPT/HCPCS: 94660; J2060; J2270